=== PATIENT | female | born 1940 | race African-American/Black ===

== ENCOUNTER → 2017-07-29 06:10 | Outpatient (CLI) | payer MEDICARE ==
--- NOTE | ~2017-07-29 | HEMODYNAMI ---
PATIENT:CALVIN SANCHEZ MEDICAL RECORD: [id number] : 38 LOCATION:[facility] ADMISSION DATE: 07/29/17 Generatedon:07/29/20178:25 Patient name: CALVIN SANCHEZ Patient #: [id number] SSN: DO B: 1940 Date of study: 07/29/2017 Page: Of Hemodynamic Procedure Report Patient Data Patient Demographics Procedure consent was obtained First Name: CALVIN Gender: Female Last Name: DANIEL : 1940 Patient #: [id number] Age: 77 year(s) Race: Black Additional ID: [id number] Contact details [address]: [address] [place] [address] [place] State: [place] City: [place] Zip code: [address] Past Medical History Allergies Allergen Reaction Date Comments Reported Penicillins 07/29/2017 Admission Admission Data Admission Date: 07/29/2017 Admission Time: 6:10 Procedure Procedure Types Cath Procedure Diagnostic Procedure LHC LHC w/Coronaries Miscellaneous Procedures Moderate Sedation up to 15 minutes Procedure Description Procedure Date Procedure Date: 07/29/2017 Procedure Start Time: 8:01 Procedure End Time: 8:25 Procedure Staff Name Function Jose Ramon Plata MD Performing Physician Henry Kelley RT Scrub Gemma Lorenzana RT Monitor Cristian Hagan RT Monitor Kory Ang RN Nurse Procedure Data Cath Procedure Fluoroscopy Diagnostic fluoroscopy Total fluoroscopy Time: 3.3 time: 3.3 min min Diagnostic fluoroscopy Total fluoroscopy dose: 454 dose: 454 mGy mGy Contrast Material Contrast Material Type Amount (ml) Isovue 300 62 Entry Location Entry Primary Successful Side Size Upsize Upsize Entry Closure Zuniga ccessful Closure Location (Fr) 1 (Fr) 2 (Fr) Remarks Device Remarks Radial Right 6 Fr Mechanical TR BAND artery Short Compression Estimated blood loss: 5 ml Diagnostic catheters Device Type Used For End Catheter Placement Diagnostic Terumo 5Fr Procedure Bee Spring 110cm catheter Diagnostic Infinity 5Fr Procedure AR MOD Catheter Procedure Complications No complications Procedure Medications Medication Administration Route Dosage 0.9% NaCl I.V. 100 ml/hr Oxygen NC 2 l/min Heparin Flush Bag added to field 2 bags (1000units/500ml NS) Lidocaine 2% added to field 20 Radial Cocktail added to field 1 syringe (Verapomil 2mg/Nitro 400mcg/Heparin 1500units) Benadryl I.V. 50 mg Versed I.V. 1 mg Fentanyl I.V. 50 mcg Radial Cocktail I.A. 1 syringe (Verapomil 2mg/Nitro 400mcg/Heparin 1500units) Fentanyl I.V. 50 mcg Radial Cocktail added to field 1 syringe (Verapomil 2mg/Nitro 400mcg/Heparin 1500units) Radial Cocktail I.A. 1 syringe (Verapomil 2mg/Nitro 400mcg/Heparin 1500units) Hemodynamics Rest Heart Rate: 47 (bpm) Pressure Samples Time Site Value (mmHg) Purpose Heart Use Rate(bpm) 8:05 LV 149/-8,7 Snapshot 72 Gradients Valve Time Site Site Mean SEP/DFP Peak To Heart Use 1 2 (mmHg) (sec/min) Peak Rate (mmHg) (bpm) Aortic 8:06 LV AO 76 Snapshots Pre Cath Intra NCS Post Cath Vital Signs Time Heart Resp SPO2 etCO2 NIBP (mmHg) Rhythm Pain Sedation Rate (ipm) (%) (mmHg) Status Level (bpm) 7:47:45 60 16 100 0 159/66(142) NSR 0 (11) 10(A) , No pain 7:52:32 61 15 100 36.6 160/68(104) NSR 0 (11) 10(A) , No pain 7:57:21 62 26 98 39.5 150/61(124) NSR 0 (11) 10(A) , No pain 8:02:50 66 19 98 38.1 151/53(124) NSR 0 (11) 10(A) , No pain 8:07:33 70 15 99 35.1 128/58(85) NSR 0 (11) 10(A) , No pain 8:12:14 69 14 100 35.8 133/55(93) NSR 0 (11) 10(A) , No pain 8:16:52 73 25 100 9.7 136/68(106) NSR 0 (11) 10(A) , No pain 8:21:31 74 22 97 14.1 130/70(89) NSR 0 (11) 10(A) , No pain Medications Time Medication Route Dose Verified Delivered Reason Notes E ffectiveness by by 7:55:35 0.9% NaCl I.V. 100 Kory Kory Per ml/hr Ashia Ang physician RN RN 7:55:47 Oxygen NC 2 l/min Kory Kory Per Ashia Ang physician RN RN 7:56:05 Heparin Flush added 2 bags Kory Kory used for Bag to Lorigan Lorigan procedure (1000units/500ml field RN RN NS) 7:56:37 Lidocaine 2% added 20ml Kory Kory for local to vial Lorigan Lorigan anesthetic field RN RN 7:56:50 Radial Cocktail added 1 Kory Kory used for (Verapomil to syringe Lorigan Lorigan procedure 2mg/Nitro field RN RN 400mcg/Heparin 1500units) 7:57:08 Benadryl I.V. 50 mg Kory Kory for sedation Ashia Ang RN RN 7:57:22 Versed I.V. 1 mg Kory Kory for sedation Ashia Ang RN RN 7:57:33 Fentanyl I.V. 50 mcg Kory Kory for sedation Ashia Ang RN RN 8:04:58 Radial Cocktail I.A. 1 Kory Jose Ramon for (Verapomil syringe Ashia Plata MD vasodilation 2mg/Nitro RN 400mcg/Heparin 1500units) 8:05:22 Fentanyl I.V. 50 mcg Kory Kory for sedation Ashia Ang RN RN 8:22:40 Radial Cocktail added 1 Kory Kory for (Verapomil to syringe Lorigan Lorigan vasodilation 2mg/Nitro field RN RN 400mcg/Heparin 1500units) 8:22:46 Radial Cocktail I.A. 1 Kory Jose Ramon for (Verapomil syringe Ashia Plata MD vasodilation 2mg/Nitro RN 400mcg/Heparin 1500units) Procedure Log Time Note 7:20:52 Informed consent obtained and on chart 7:28:20 Cristian SAMUEL(R) sent for patient. Start room use. 7:28:23 Time tracking: Regular hours 7:28:27 Plan of Care:Hemodynamics will remain stable., Cardiac rhythm will remain stable., Comfort level will be maintained., Respiratory function will remain adequate., Patient/ family verbilizes understanding of procedure., Procedure tolerated without complication., Recovers from procedure without complications.. 7:31:00 H&P Date Dictated: 07/26/2017 Within 30 days and on chart., H&P Addendum completed by physician on day of procedure. (MUST COMPLETE FOR ALL OUTPATIENTS). 7:38:44 Patient received from Pre/Post Procedure Room to CCL 1 Alert and oriented. Tansferred to table in Supine position. 7:38:46 Warm blankets applied, and billie hugger turned on for patient comfort. 7:38:47 Correct patient and procedure confirmed by team. 7:38:48 ECG and BP/O2 sat monitors applied to patient. 7:46:49 Vital chart was started 7:49:49 Baseline sample Acquired. 7:49:54 Rhythm: sinus rhythm 7:49:56 Full Disclosure recording started 7:49:57 Pre-procedure instructions explained to patient. 7:49:58 Pre-op teaching completed and patient verbalized understanding. 7:50:00 Family in patients room. 7:50:01 Patient NPO since Midnight. 7:50:12 Patient allergic to Penicillins 7:50:16 Is the patient allergic to Iodine/contrast media? No. 7:50:19 Is patient on blood thinner?No 7:50:21 Patient diabetic? Yes. 7:50:23 If diabetic: On Metformin? Yes 7:50:28 If on Metformin: Last Dose? 07/27/2017 7:50:32 Previous problem with sedation/anesthesia? No ? 7:50:33 Snore? No 7:50:36 Sleep apnea? No 7:50:39 Deviated septum? No 7:50:41 Opens mouth fully? Yes 7:50:42 Sticks out tongue? Yes 7:50:44 Airway obstruction? No ? 7:50:49 Dentures? Yes IN TIGHT 7:50:54 Modified Vernon's test Ulnar < 7 seconds 7:50:59 Patient pain scale 0/10 ?. 7:51:05 IV patent on arrival in left forearm with 0.9% NaCl at KVO. 7:51:09 Lab results completed and on chart. 7:51:13 Right Radial & Right Groin area was prepped with chlora-prep and draped in sterile fashion 7:51:14 Alarms reviewed by Coretta Daivs 7:51:14 Sharps counted by scrub and verified by R.N. 7:51:15 --------ALL STOP TIME OUT------ 7:51:16 Final Timeout: patient, procedure, and site verified with staff and physician. All members of the team are in agreement. 7:51:25 Right Radial & Right Groin site verified by team. 7:51:30 Physical assessment completed. ASA score P 2 - A patient with mild systemic disease as per Jose Ramon Plata MD. 7:51:34 Sedation plan: IV Moderate Sedation Versed, Fentanyl 7:51:47 Use device set Radial Dx 7:51:50 Tegaderm 4 x 4 opened to sterile field. 7:51:51 Acist Manifold opened to sterile field. 7:51:52 Acist Hand Control opened to sterile field. 7:51:53 Acist Syringe opened to sterile field. 7:51:54 MBrace Wrist Support opened to sterile field. 7:51:56 Medline Cath Pack opened to sterile field. 7:51:56 Bag Decanter opened to sterile field. 7:51:57 Terumo 6Fr Slender Glidesheath opened to sterile field. 7:51:58 St Eric 260cm J .035 wire opened to sterile field. 7:52:04 Cook 21G 4cm Radial Needle opened to sterile field. 7:55:35 0.9% NaCl 100 ml/hr I.V. was administered by Kory Ang RN; Per physician; 7:55:47 Oxygen 2 l/min NC was administered by Kory Ang RN; Per physician; 7:56:05 Heparin Flush Bag (1000units/500ml NS) 2 bags added to field was administered by Kory Ang RN; used for procedure; 7:56:37 Lidocaine 2% 20ml vial added to field was administered by Kory Ang RN; for local anesthetic; 7:56:50 Radial Cocktail (Verapomil 2mg/Nitro 400mcg/Heparin 1500units) 1 syringe added to field was administered by Kory Ang RN; used for procedure; 7:57:08 Benadryl 50 mg I.V. was administered by Kory Ang RN; for sedation; 7:57:22 Versed 1 mg I.V. was administered by Kory Ang RN; for sedation; 7:57:33 Fentanyl 50 mcg I.V. was administered by Kory Ang RN; for sedation; 7:58:39 Zero performed for pressure channel P1 8:01:05 Procedure started. 8:01:52 Local anesthetic to right radial artery with Lidocaine 2% by Jose Ramon Plata MD.INITIAL ACCESS ONLY 8:02:50 A 6 Fr Short sheath was inserted into the Right Radial artery 8:03:44 A Diagnostic Terumo 5Fr Bee Spring 110cm catheter was advanced over the wire and used for Procedure. 8:04:58 Radial Cocktail (Verapomil 2mg/Nitro 400mcg/Heparin 1500units) 1 syringe I.A. was administered by Jose Ramon Plata MD; for vasodilation; 8:05:00 LV gram done using RICARDO 8:05:22 Fentanyl 50 mcg I.V. was administered by Kory Ang RN; for sedation; 8:06:04 EF : 60 % 8:06:05 LV hemodynamics recorded. 8:06:08 Injector settings: Ml/sec: 7, Volume: 15, 8:06:30 LCA angiography performed. 8:08:27 Catheter exchanged over wire. 8:08:53 A Diagnostic Infinity 5Fr AR MOD Catheter was advanced over the wire and used for Procedure. 8:11:23 RCA angiography performed. 8:13:30 Catheter removed. 8:15:41 Terumo TR Band Standard opened to sterile field. 8:15:58 Sheath removed intact; hemostasis achieved with Mechanical Compression to the Right Radial artery. 8:16:00 Procedure ended.(Physican Out) 8:16:15 Fluoroscopy time 03.30 minutes. 8:16:18 Fluoroscopy dose: 454 mGy 8:16:18 Flurop Dose total: 454 8:16:48 Contrast amount:Isovue 300 62ml. 8:16:50 Sharps counted by scrub and verified by R.N. 8:16:57 TR band inflated with 11cc of air. 8:17:01 Insertion/operative site no bleeding no hematoma. 8:17:06 Post Procedure Pulses reassessed and unchanged 8:17:11 Post-procedure physical assessment completed. ASA score P 2 - A patient with mild systemic disease as per Jose Ramon Plata MD. 8:17:16 Post procedure rhythm: unchanged. 8:17:19 Estimated blood loss: 5 ml 8:17:21 Patient needs reinforcement of post procedure teaching. 8:17:22 Post procedure instruction explained to patient.Patient verbalizes understanding. 8:17:46 Procedure type changed to Cath procedure, Diagnostic procedure, LHC, LHC w/Coronaries, Miscellaneous Procedures, Moderate Sedation up to 15 minutes 8:19:41 Procedure and supply charges have been captured, reviewed, submitted and are correct. 8:19:48 Procedure Complication : No complications 8:22:40 Radial Cocktail (Verapomil 2mg/Nitro 400mcg/Heparin 1500units) 1 syringe added to field was administered by Kory Ang RN; for vasodilation; 8:22:46 Radial Cocktail (Verapomil 2mg/Nitro 400mcg/Heparin 1500units) 1 syringe I.A. was administered by Jose Ramon Plata MD; for vasodilation; 8:25:09 Vital chart was stopped 8:25:10 See physician's report for complete and final results. 8:25:12 Report given to Pre/Post Procedure Room. 8:25:15 Patient transfered to Pre/Post Procedure Room with Stretcher. 8:25:17 Procedure ended. 8:25:17 Full Disclosure recording stopped 8:25:22 End room use (Document Last) Device Usage Item Name Manufacture Quantity Catalog Hospital Part Current Minimal Lot# / Number Charge Number Stock Stock Serial# Code Tegaderm 4 1 [id number] [id number] [id number] 5 x 4 Acist Acist 1 79696 173760 734505 691570 5 Manifold [employer] Inc Acist Hand Acist 1 91580 029411 143472 203930 5 Control Medical Systems Inc Acist Acist 1 88262 303391 012505 576474 20 Syringe Medical Systems Inc MBrace Advanced 1 140-0250-00 518846 69511 137059 5 Wrist Vascular Support Dynamics Medline Cardinal 1 [id number] 960285 73693 403263 5 Cath Pack Health Bag Microtek 1 2001S 255432 37604 669086 5 Dec[employer] Inc[employer] Terumo 6Fr Terumo 1 [id number] 934874 338952 170263 [address] St Eric 1 [id number] 703067 870614 051943 30 260cm J .035 wire Cook 21G Cook Medical 1 [id number] 968608 897151 234615 5 4cm Radial Needle Diagnostic Terumo 1 69-9748 069561 360443 505175 5 Terumo 5Fr Bee Spring 110cm catheter Diagnostic Cardinal 1 [id number] 741897 753908 322736 15 Infinity Health 5Fr AR MOD Catheter Terumo TR Terumo 1 [id number] 418433 439823 072331 40 Band Standard Signature Audit [place] Stage Time Signature Unsigned Intra-Procedure 07/29/2017 Gemma Lorenzana 8:25:42 AM RT(R) Signatures Monitor : Gemma Lorenzana Signature : RT Date : Time : Monitor : Cristian Hagan RT Signature : Date : Time : [facility] Tab0 SHAD [place] [id number]
[~2017-07-29 06:10] MED LIST: COZAAR50 MG PO; GLUCOPHAGE500 MG PO; HYDROCODON-ACE1 EAC7 PO; ISOSORBIDE MONO30 M1 PO; PRAVACHOL20 MG PO; XANAX0.5 MG PO; ZOVIRAX400 MG PO; ZYRTEC10 MG PO
[2017-07-29 06:40] VITALS: BP 115/53; BMI 25.6
[2017-07-29 06:42] LABS: BASOPHILS 0.6 % (0-2); EOSINOPHILS 7.6 % (0-7); HEMATOCRIT 33.9 % (36.0-48.0); HEMOGLOBIN 11.3 g/dL (12-16); IMMATURE GRANULOCYTES 0.3 % (0-5); LYMPHOCYTES 48.5 % (15-50); MCH 31.7 pg (26.0-34.0); MCHC 33.3 g/dL (31.0-37.0); MCV 95.2 fL (80.0-100.0); MEAN PLATELET VOLUME 9.8 fL (7.4-10.4); MONOCYTES 9.4 % (2-11); NEUTROPHILS 33.6 % (40-80); PLATELET COUNT 261 10x3/uL (130-400); RBC 3.56 10x6/uL (4.00-5.40); WBC 3.4 10x3/uL (4.8-10.8)
[2017-07-29 06:55] LABS: CALC OSMOLALITY 282 mosm/kg (275-300); CALCIUM 9.5 mg/dL (8.5-10.1); CARBON DIOXIDE 26.8 mmol/L (21.0-32.0); CHLORIDE - SERUM 105 mmol/L (98-107); CREATININE - SERUM 0.7 mg/dL (0.6-1.3); GLUCOSE 133 mg/dL (74-106); POTASSIUM - SERUM 3.8 mmol/L (3.5-5.1); SODIUM 141 mmol/L (136-145); UREA NITROGEN 12 mg/dL (7-18); eGFR NON AFRICAN AMERICAN 86 mL/min (90-120)
--- NOTE | 2017-07-29 08:44 | NUR ---
RECIEVED TO ROOM VIA STRETCHER FROM WEB UI DEVELOPER WITH REPORTS OF A CLEAN CATH. TR BAND TO R/WRIST CDI NO BLEEDING NO HEMATOMA NOTED. INSTRUCTED PATIENT TO KEEP RUE STRAIGHT NO BENDING OR FLEXING OF WRIST. HR 63 BP 137/56 CHEST PAIN DENIED
--- NOTE | 2017-07-29 08:55 | NUR ---
RESTING QUIETLY WITH EYES CLOSED. TR BAND TO R/WRIST CDI NO BLEEDING NO HEMATMOA NOTED. VSS
--- NOTE | 2017-07-29 09:33 | NUR ---
VSS WITH NO COMPLAINTS. TR BAND TO R/WRIST CDI NO BLEEDING NO HEMATOMA NOTED. FAMILY AT BEDSIDE
--- NOTE | 2017-07-29 09:46 | NUR ---
VSS WITH NO DISTRESS OR COMPLAINTS. TR BAND REMAINS IN PLACE TO R/WRIST CDI NO BLEEDING NO HEMATOMA NOTED.
--- NOTE | 2017-07-29 09:59 | NUR ---
DR SPICER PRESENT AT BEDSIDE TALKING TO PATIENT AND FAMILY.
--- NOTE | 2017-07-29 10:12 | NUR ---
ENTERED ROOM WITH PATIENT SITTING UP 30 DEGREES EATING SANDWICH WITH TR BAND REMOVED. NO BLEEDING NO HEMATOMA NOTED. ASK THE PATIENT WHAT HAPPENED TO HER TR BAND AND SHE REPLIED I TOOK IT OFF. TR BAND IS ON THE BED. STAFF APPLIED DRESSING AND PUT BRACE BACK IN PLACE REEDUCATED PATIENT ON NO BENDING OR FLEXING OF WRIST. PATIENT CONFUSED STATES OK SHE PUSHES HERSELF UP IN BED WITH THE R/WRIST.
--- NOTE | 2017-07-29 10:26 | NUR ---
PIV REMOVED WITH DRESSING APPLIED R/WRIST REMAINS CDI NO BLEEDING NO HEAMTOMA NOTED. PATIENT DENIED PAIN UP TO GET DRESSED FOR DISCHARGE HOME
--- NOTE | 2017-07-29 10:39 | NUR ---
VERBAL AND WRITTEN DISCHARGE GONE OVER WITH PATIENT AND BOTH VERBALIZED UNDERSTANDING. NEW SCRIPT IN HAND FOR IMDUR 30 MG DAILY. PATIENT VERBALIZED TO START MEDICATION TODAY. R/WRIST REMAINS CDI WITH DRESSING INTACT.
--- NOTE | 2017-07-29 10:43 | NUR ---
PATIENT TRANSPORTED VIA WC TO PARKING FOR TO DRIVE HOME CHEST PAIN IS DENIED AND R/WRIST CDI
== END | disposition home or self-care (01) ==
LOC: D.CATH 06:10
PROVIDERS: Internal Medicine Cardiovascular Disease
DX: I25.119 Atherosclerotic heart disease of native coronary artery with unspecified angina pectoris (principal); Z01.812 Encounter for preprocedural laboratory examination

== ENCOUNTER → 2018-09-01 10:39 | Outpatient (CLI) | payer MEDICARE ==
[2017-07-29 06:40] VITALS: BMI 25.6
== END | disposition home or self-care (01) ==
LOC: D.HCCARDIO 10:39
DX: I25.10 Atherosclerotic heart disease of native coronary artery without angina pectoris (principal)

== ENCOUNTER → 2019-07-24 08:40 | Outpatient (CLI) | payer MEDICARE ==
[2017-07-29 06:40] VITALS: BMI 25.6
== END | disposition home or self-care (01) ==
LOC: D.HCCECHO 08:40
PROVIDERS: ATTEND Internal Medicine Cardiovascular Disease
DX: I25.10 Atherosclerotic heart disease of native coronary artery without angina pectoris (principal)

== ENCOUNTER → 2020-03-12 09:24 | Outpatient (CLI) | payer MEDICARE ==
[2017-07-29 06:40] VITALS: BMI 25.6
== END | disposition home or self-care (01) ==
LOC: D.HCCARDIO 02-23 09:00
PROVIDERS: ATTEND Internal Medicine Cardiovascular Disease
DX: I25.10 Atherosclerotic heart disease of native coronary artery without angina pectoris (principal)

== ENCOUNTER 2020-03-21 06:47 | Outpatient (CLI) | payer MEDICARE ==
[~2020-03-21] VITALS: Ht 157.5 cm; Wt 65.0 kg
--- NOTE | ~2020-03-21 | HEMODYNAMI ---
PATIENT:CALVIN SANCHEZ MEDICAL RECORD: [id number] : 38 LOCATION:[facility] ADMISSION DATE: 03/21/20 Generatedon:03/21/20209:38 Patient name: CALVIN SANCHEZ Patient #: [id number] SSN: [id number] : 1940 Date of study: 03/21/2020 Page: Of Hemodynamic Procedure Report Patient Data Patient Demographics Procedure consent was obtained First Name: CALVIN Gender: Female Last Name: DANIEL : 1940 Patient #: [id number] Age: 80 year(s) Race: Black SSN: [id number] Additional ID: [id number] Contact details [address]: [address] [place] [address] [place] State: [place] City: [place] Zip code: [address] Past Medical History Performed procedures and imaging results Date Procedure Procedure Results Comments 03/12/2020 Stress testing Positive->Intermediate with SPECT MPI risk Allergies Allergen Reaction Date Comments Reported Penicillins 07/29/2017 Other allergy 03/21/2020 PCN Admission Admission Data Admission Date: 03/21/2020 Admission Time: 6:47 Arrival Date: 03/21/2020 Arrival Time: 0:00 Admit Source: Other Insurance Payor: Medicare [facility] #: [id number] Height (in.): 62 BSA: 1.66 (m2) Height (cm.): 157.48 BMI: 26.21 (kg/m2) Weight (lbs.): 143.3 Weight (kg.): 65 Lab Results Lab Result Date: 03/21/2020 Lab Result Time: 0:00 Biochemistry Name Units Result Min Max BUN mg/dl 14 --(--*-)-- 7 18 Creatinine mg/dl 1 --(--*-)-- 0.6 1.3 eGFR ml/min 67.81008 *-(----)-- 90 120 AM CBC Name Units Result Min Max Hematocrit % 34 *-(----)-- 42 54 Hemoglobin g/dl 11 *-(----)-- 13.5 17.5 Procedure Procedure Types Cath Procedure Diagnostic Procedure [facility] w/Coronaries Sedation Charges Moderate Sedation up to 15 minutes Procedure Description Procedure Date Procedure Date: 03/21/2020 Procedure Start Time: 9:20 Procedure End Time: 9:35 Procedure Staff Name Function Jose Ramon Plata MD Performing Physician Nila Mancera RT Monitor Gladis Ervin RT Scrub Yolanda Lockett RN Nurse Procedure Data Cath Procedure Fluoroscopy Diagnostic fluoroscopy Total fluoroscopy Time: 1.4 time: 1.4 min min Diagnostic fluoroscopy Total fluoroscopy dose: 361 dose: 361 mGy mGy Contrast Material Contrast Material Type Amount (ml) Isovue 370 55 Entry Location Entry Primary Successful Side Size Upsize Upsize Entry Closure Succes sful Closure Location (Fr) 1 (Fr) 2 (Fr) Remarks Device Remarks Femoral Right 5 Fr Exoseal artery Estimated blood loss: 5 ml Diagnostic catheters Device Type Used For End Catheter Placement MULTIPACK JL 4.0 5Fr Procedure catheter MULTIPACK 3DRC 5Fr Procedure catheter MULTIPACK Pigtail 5 Fr Procedure catheter Procedure Complications No complications Procedure Medications Medication Administration Route Dosage Oxygen etCO2 Nasal cannula 2 l/min Lidocaine 2% added to field 20 Heparin Flush Bag added to field 2 bags (1000units/500ml NS) 0.9% NaCl I.V. 100 ml/hr Versed I.V. 2 mg Fentanyl I.V. 50 mcg Versed I.V. 2 mg Hemodynamics Rest BSA: 1.66 (m2) HGB: 11 (g/dl) O2 Consumption: Estimated: 138.55 (ml/min) O2 Cons umption indexed: Estimated:83.46 (ml/min/m) Heart Rate: 54 (bpm) Pressure Samples Time Site Value (mmHg) Purpose Heart Use Rate(bpm) 9:29 LV 190/42,73 Snapshot 62 Gradients Valve Time Site Site Mean SEP/DFP Peak To Heart Use 1 2 (mmHg) (sec/min) Peak Rate (mmHg) (bpm) Aortic 9:31 LV AO 51 Snapshots Pre Cath Intra NCS Post Cath Vital Signs Time Heart Resp SPO2 etCO2 NIBP (mmHg) Rhythm Pain Sedation Rate (ipm) (%) (mmHg) Status Level (bpm) 9:07:37 53 18 95 32.3 130/50(113) NSR 0 (11) 10(A) , No pain 9:13:27 54 15 100 38.3 163/61(145) NSR 0 (11) 10(A) , No pain 9:17:57 54 16 100 20.2 142/58(110) NSR 0 (11) 10(A) , No pain 9:22:21 55 18 100 34.5 138/62(118) NSR 0 (11) 9(A) , No pain 9:26:46 58 19 96 35.3 125/56(98) NSR 0 (11) 9(A) , No pain 9:31:08 60 17 96 35.3 128/52(100) NSR 0 (11) 9(A) , No pain 9:35:30 58 17 96 29.2 139/56(112) NSR 0 (11) 10(A) , No pain Medications Time Medication Route Dose Verified Delivered Reason Notes Effec tiveness by by 9:10:23 Oxygen etCO2 2 Jose Ramon Jose Ramon Per Nasal l/min Boni Plata MD physician cannula 9:10:31 Lidocaine 2% added 20ml Jose Ramon Jose Ramon used for to vial Boni Plata MD procedure field 9:10:37 Heparin Flush added 2 Jose Ramon Jose Ramon used for Bag to bags Boni Plata MD procedure (1000units/500ml field NS) 9:10:44 0.9% NaCl I.V. 100 Jose Ramon Buffie Per ml/hr Boni Lockett RN physician 9:19:01 Fentanyl I.V. 50 Jose Ramon Buffie for mcg Boni Lockett RN sedation 9:19:54 Versed I.V. 2 mg Jose Ramon Buffie for Boni Lockett RN sedation 9:25:30 Versed I.V. 2 mg Jose Ramon Buffie for Boni Lockett RN sedation Procedure Log Time Note 8:47:06 Informed consent obtained and on chart 8:50:16 Arrival Date: 03/21/2020 12:00:00 AM 8:50:16 Admit Source: Other 8:50:22 Insurance Payor : Medicare 8:50:49 Patient Height : 62 inches 8:50:57 Patient Weight : 143.3 lbs 8:51:13 Lab Result : Hematocrit 34 % 8:51:13 Lab Result : Hemoglobin 11 g/dl 8:51:35 Diagnostic Cath Status : Elective 8:51:44 Procedure Status Elective Heart Cath (OP). 8:51:47 Yolanda Lockett RN sent for patient. Start room use. 8:51:48 Time tracking: Regular hours (M-F 7:00 - 5:00) 8:51:52 Plan of Care:Hemodynamics will remain stable., Cardiac rhythm will remain stable., Comfort level will be maintained., Respiratory function will remain adequate., Patient/ family verbilizes understanding of procedure., Procedure tolerated without complication., Recovers from procedure without complications.. 8:52:07 H&P Date Dictated: 02/20/2020 Within 30 days and on chart.. 8:52:08 Pre-procedure instructions explained to patient. 8:52:08 Pre-op teaching completed and patient verbalized understanding. 8:52:11 Family in waiting room. 8:52:13 Patient NPO since Midnight. 8:52:24 Patient allergic to Other allergyPCN 8:53:01 Lab results completed and on chart. 8:53:14 Stress Test: yes; abnormal ANTERIOR, LATERAL, APICAL 8:53:17 Alarms reviewed by R. N. 8:53:18 Sharps counted by scrub and verified by R.N. 8:56:14 Patient received from Pre/Post Procedure Room to CCL 1 Alert and oriented. Tansferred to table in Supine position. 8:56:16 Warm blankets applied, and billie hugger turned on for patient comfort. 8:56:16 Correct patient and procedure confirmed by team. 8:56:17 ECG and BP/O2 sat monitors applied to patient. 9:03:17 Is the patient allergic to Iodine/contrast media? No. 9:03:50 Dentures? Yes IN TIGHT 9:03:53 Previous problem with sedation/anesthesia? No ? 9:03:54 Snore? Yes 9:03:55 Sleep apnea? No 9:03:56 Deviated septum? No 9:03:57 Opens mouth fully? Yes 9:03:57 Sticks out tongue? Yes 9:04:00 Airway obstruction? No ? 9:04:03 Patient diabetic? Yes. 9:04:04 If diabetic: On Metformin? No 9:04:08 Is patient on blood thinner?No 9:04:12 Baseline sample Acquired. 9:04:15 Rhythm: sinus bradycardia 9:04:16 Full Disclosure recording started 9:04:23 Patient pain scale 0/10 ?. 9:04:26 IV patent on arrival in left hand with 0.9% NaCl at [facility]. 9:04:33 Right groin area was prepped with chlora-prep and draped in sterile fashion 9:05:52 Pre procedure: right dorsailis pedis pulse 2+ Normal; easily identifiable; not easily obliterated 9:05:55 Modified Vernon's test Ulnar > 7 seconds. 9:06:45 Use device set Femoral Dx 9:06:46 ACIST Syringe (37389) opened to sterile field. 9:06:46 Bag Decanter (2002S) opened to sterile field. 9:06:47 Medline Cath Pack ([id number]) opened to sterile field. 9:06:48 ACIST Hand Control (72715) opened to sterile field. 9:06:49 ACIST Manifold (37322) opened to sterile field. 9:06:49 DIAGNOSTIC Multipack 5Fr catheter set ([id number]) opened to sterile field. 9:06:50 SHEATH 5FR [place] (JWN747) opened to sterile field. 9:06:52 EMERALD Guide Wire (433-414) opened to sterile field. 9:08:01 Lab Result : eGFR AM 67.21918 ml/min 9:08:01 Lab Result : Creatinine 1 mg/dl 9:08:01 Lab Result : BUN 14 mg/dl 9:10:23 Oxygen 2 l/min etCO2 Nasal cannula was administered by Jose Ramon Plata MD; Per physician; Verbal order read back and verified. 9:10:31 Lidocaine 2% 20ml vial added to field was administered by Jose Ramon Plata MD; used for procedure; Verbal order read back and verified. 9:10:37 Heparin Flush Bag (1000units/500ml NS) 2 bags added to field was administered by Jose Ramon Plata MD; used for procedure; Verbal order read back and verified. 9:10:44 0.9% NaCl 100 ml/hr I.V. was administered by Yolanda Lockett RN; Per physician; Verbal order read back and verified. 9:18:45 Risk of Mortality: 0.2 9:18:47 Risk of blood transfusion: 0.8 9:18:50 Risk of STEPHANY: 0.5 9:18:52 --------ALL STOP TIME OUT------ 9:18:52 Final Timeout: patient, procedure, and site verified with staff and physician. All members of the team are in agreement. 9:18:54 Right groin site verified by team. 9:18:58 Fire Safety Assessment: A--An alcohol-based skin anteseptic being used preoperatively., C--Open oxygen or nitrous oxide is being used., D--An ESU, laser, or fiber-optic light is being used. 9:19:01 Fentanyl 50 mcg I.V. was administered by Yolanda Lockett RN; for sedation; Verbal order read back and verified. 9:19:01 Physical assessment completed. ASA score P 2 - A patient with mild systemic disease as per Jose Ramon Plata MD. 9:19:05 2) 60-89 Mildly reduced kidney function, and other findings (as for stage 1) point to kidney disease. 9:19:08 Maximum allowable contrast dose (3.7 X eGFR X 0.75)189 ml. 9:19:11 Sedation plan: IV Moderate Sedation Medication:Versed, Fentanyl 9:19:54 Versed 2 mg I.V. was administered by Yolanda Lockett RN; for sedation; Verbal order read back and verified. 9:20:32 Procedure started. 9:20:46 Local anesthetic to right femoral artery with Lidocaine 2% by Jose Ramon Plata MD.INITIAL ACCESS ONLY 9:23:11 A 5 Fr sheath was inserted into the Right Femoral artery 9:23:18 A MULTIPACK JL 4.0 5Fr catheter was advanced over the wire and used for Procedure. 9:24:03 LCA angiography performed. 9:24:05 Injector settings: Ml/sec: 3, Volume: 6, 9:25:30 Versed 2 mg I.V. was administered by Yolanda Lockett RN; for sedation; Verbal order read back and verified. 9:26:19 Catheter exchanged over wire. 9:26:55 A MULTIPACK 3DRC 5Fr catheter was advanced over the wire and used for Procedure. 9:27:01 Injector settings: Ml/sec: 3, Volume: 6, 9:27:04 RCA angiography performed. 9:27:48 ACCDominant side:Left 9:27:56 Catheter exchanged over wire. 9:28:20 A MULTIPACK Pigtail 5 Fr catheter was advanced over the wire and used for Procedure. 9:29:02 Injector settings: Ml/sec: 5, Volume: 15, 9:29:04 LV gram done using RICARDO 9:29:15 LV hemodynamics recorded. 9:29:25 EF : 55 % 9:32:32 Catheter removed. 9:32:35 EXOSEAL 5Fr (EX500) opened to sterile field. 9:32:45 Sheath removed intact; hemostasis achieved with Exoseal to the Right Femoral artery. 9:32:50 Fluoroscopy time 01.40 minutes. 9:32:56 Fluoroscopy dose: 361 mGy 9:33:07 Flurop Dose total: 361 9:33:11 Dose Area Product 11059 mGy/cm. 9:33:14 Contrast amount:Isovue 370 55ml. 9:33:16 Procedure ended.(Physican Out) 9:33:27 Maximum allowable dose exceeded? No. 9:33:28 Sharps counted by scrub and verified by R.N. 9:33:33 Post-op/insertion site Right Femoral artery dressed using a 4 x 4 and Tegaderm. 9:33:38 Post right femoral artery:stable, soft, clean and dry 9:33:40 Post Procedure Pulses reassessed and unchanged 9:33:54 Post-procedure physical assessment completed. ASA score P 2 - A patient with mild systemic disease as per Jose Ramon Plata MD. 9:33:57 Post procedure rhythm: unchanged. 9:34:00 Estimated blood loss: 5 ml 9:34:02 Post procedure instruction explained to patient.Patient verbalizes understanding. 9:34:02 Patient needs reinforcement of post procedure teaching. 9:34:22 Procedure type changed to Cath procedure, Diagnostic procedure, LHC, [facility] w/Coronaries, Sedation Charges, Moderate Sedation up to 15 minutes 9:34:47 Procedure and supply charges have been captured, reviewed, submitted and are correct. 9:34:51 Procedure Complication : No complications 9:34:57 [facility] Findings: TEX- will discuss options w/ pt 9:35:00 Operative report dictated upon procedure completion. 9:35:01 See physician's report for complete and final results. 9:35:06 Report given to Pre/Post Procedure Room. 9:35:08 Vital chart was stopped 9:35:17 Patient transfered to Pre/Post Procedure Room with Stretcher. 9:35:19 Procedure ended. 9:35:19 Full Disclosure recording stopped 9:37:34 End room use (Document Last) 9:37:55 End room use (Document Last) 9:38:22 End room use (Document Last) Device Usage Item Name Manufacture Quantity Catalog Hospital Part Current Minimal L ot# / Number Charge Number Stock Stock Serial# Code ACIST Acist 1 22460 868607 819422 774123 20 Syringe Medical (81084) Systems Inc Bag Microtek 1 664088 58971 985825 5 Decanter Medical Inc. () Medline Medline 1 [id number] 121328 35919 924623 5 Cath Pack ([id number]) ACIST Hand Acist 1 70819 076729 842459 002272 5 Control Medical (91388) Systems Inc ACIST Acist 1 14351 260104 772422 719224 5 Manifold Medical (73750) Systems Inc DIAGNOSTIC Cardinal 1 OX9312 837910 24337 077946 30 Multipack Health 5Fr catheter set (FG9582) SHEATH 5FR Terumo 1 OEG258 327153 047144 065940 5 [place] (AGB965) EMERALD Cardinal 1 502-455 700598 906410 370032 5 Guide Wire Health (502-455) MULTIPACK Cardinal 1 928501 5 JL 4.0 5Fr Health catheter MULTIPACK Cardinal 1 524578 5 3DRC 5Fr Health catheter MULTIPACK Cardinal 1 709102 5 Pigtail 5 Health Fr catheter EXOSEAL 5Fr Cardinal 1 EX500 179922 242811 849301 10 (EX500) Health Signature Audit Hiram Stage Time Signature Unsigned Intra-Procedure 03/21/2020 Nila Mancera 9:37:55 AM RT(R) Intra-Procedure 03/21/2020 Yolanda Lockett RN 9:38:22 AM Intra-Procedure 03/21/2020 Jose Ramon Plata MD 9:38:39 AM [facility] [address] [place] [address]
[2020-03-21] MEDS ORDERED: LIPITOR10 MG PO (07:28)
[2020-03-21] MEDS ORDERED: TIMOPTIC 0.5 % O5 ML EACH EYE (07:32)
[2020-03-21] MEDS ORDERED: XALATAN 0.0052.5 ML LEFT EYE (07:33)
[2020-03-21] MEDS ORDERED: CARAFATE1 G PO (07:34)
[2020-03-21] MEDS ORDERED: GLIMEPIRIDE4 MG PO (07:34)
[2020-03-21] MEDS ORDERED: PEPCID AC20 MG PO (07:36)
[2020-03-21] MEDS ORDERED: TRESIBA FL100 UNIT/1 SC (07:36)
[2020-03-21] MEDS ORDERED: HYDROCODON-ACE1 EAC7 PO (07:39)
[2020-03-21 07:41] VITALS: BP 165/55; Ht 157.5 cm; Wt 65.0 kg
[2020-03-21 07:48] LABS: MCH 31.5 pg (26.0-34.0); MCHC 32.4 g/dL (31.0-37.0); MCV 97.4 fL (80.0-100.0); MEAN PLATELET VOLUME 10.6 fL (7.4-10.4); PLATELET COUNT 258 10x3/uL (130-400); RBC 3.49 10x6/uL (4.00-5.40); RDW 12.1 % (11.5-14.5); WBC 4.1 10x3/uL (4.8-10.8)
[2020-03-21 08:49] LABS: ANION GAP 7.4 mmol/L (8-16); CALCIUM 9.1 mg/dL (8.5-10.1); CARBON DIOXIDE 31.5 mmol/L (21.0-32.0); CHOL - HDL RATIO 3.5 ratio (2.3-4.1); LDL-HDL RATIO 2.1 ratio (1.5-3.5); POTASSIUM - SERUM 3.9 mmol/L (3.5-5.1)
--- NOTE | 2020-03-21 09:45 | NUR ---
PT REC'D TO ROOM 10 VIA STRETCHER FROM BLANKER OPERATOR. MONITORS ESTAB, PT DROWSY. SEE SOLUTIONS SALES EXECUTIVE. ALARMS ON AND C/L IN REACH.
--- NOTE | 2020-03-21 10:00 | NUR ---
R GROIN SITE SOFT, NO S/S BLEEDING OR HEMATOMA. PULSES PALP. VSS. PT RESTING QUIETLY, NOT AT BS FOR UPDATE AT THIS TIME. ALARMS ON AND C/L IN REACH.
--- NOTE | 2020-03-21 10:30 | NUR ---
PT RESTING QUIETLY, VSS. R GROIN SITE SOFT, NO S/S BLEEDING OR HEMATOMA. FEET WARM WITH PALP PULSES. ALARMS ON AND C/L IN REACH.
--- NOTE | 2020-03-21 10:45 | NUR ---
R GROIN SITE SOFT, NO S/S BLEEDING OR HEMATOMA. VSS.
--- NOTE | 2020-03-21 11:05 | NUR ---
SPOKE WITH PT ON PHONE RE: NEEDING TO BE HERE FOR MD UPDATE AND PT DISCHARGE AT 1230.
--- NOTE | 2020-03-21 11:24 | NUR ---
R GROIN SITE SOFT, C/D/I. HEAD OF BED ELEVATED. PT DENIES NEED FOR SANDWICH OR DRINK AT THIS TIME. VSS. C/L IN REACH.
[2020-03-21 11:44] LABS: EOSINOPHILS 6 % (0-7); LYMPHOCYTES 64 % (15-50); MONOCYTES 4 % (2-11); NEUTROPHILS 26 % (40-80); PLATELET ESTIMATE NORMAL
--- NOTE | 2020-03-21 11:45 | NUR ---
DR SPICER AT TO UPDATE PT AND HER . WILL KEEP APPT IN OFFICE TOMORROW TO DISCUSS PLAN OF CARE.
--- NOTE | 2020-03-21 12:15 | NUR ---
R GROIN SITE SOFT, C/D/I. PIV D/C'D INTACT, DSG APPLIED. PT ALLOWED UP TO GET DRESSED WITH ASSISTING.
--- NOTE | 2020-03-21 12:17 | NUR ---
ALL DISCHARGE INSTRUCTIONS REVIEWED WITH PT AND HER , THEY VERBALIZE UNDERSTANDING.
--- NOTE | 2020-03-21 12:20 | NUR ---
PT D/C'D VIA WC TO PRIVATE VEHICLE. PT HAS ALL PAPER WORK AND BELONGINGS.
== END 2020-03-21 12:20 | disposition home or self-care (01) ==
LOC: D.CATH 06:47
PROVIDERS: ATTEND Internal Medicine Cardiovascular Disease
DX: I25.119 Atherosclerotic heart disease of native coronary artery with unspecified angina pectoris (principal); R94.39 Abnormal result of other cardiovascular function study; E11.9 Type 2 diabetes mellitus without complications; Z79.84 Long term (current) use of oral hypoglycemic drugs; R06.09 Other forms of dyspnea; I34.0 Nonrheumatic mitral (valve) insufficiency

== ENCOUNTER 2020-03-25 15:53 | Inpatient (IN) | payer MEDICARE ==
[~2020-03-25] VITALS: Ht 157.5 cm; Wt 64.6 kg
[~2020-03-25 15:53] MED LIST changes: +CARAFATE1 G PO; +GLIMEPIRIDE4 MG PO; +LIPITOR10 MG PO; +PEPCID AC20 MG PO; +TIMOPTIC 0.5 % O5 ML EACH EYE; +TRESIBA FL100 UNIT/1 SC; +XALATAN 0.0052.5 ML LEFT EYE
[2020-03-28] MEDS ORDERED: MICARDIS40 MG PO (08:28)
[2020-03-28] MEDS ORDERED: VITAMIN B-121000 MCG PO (08:28)
[2020-03-28] MEDS ORDERED: TURMERIC PO (08:29)
[2020-03-28] MEDS ORDERED: VITAMIN D1000 UNIT PO (08:29)
[2020-03-28 10:22] LABS: BASOPHILS 0.8 % (0-2); EOSINOPHILS 5.4 % (0-7); HEMATOCRIT 36.8 % (36.0-48.0); HEMOGLOBIN 11.9 g/dL (12-16); IMMATURE GRANULOCYTES 0.3 % (0-5); LYMPHOCYTES 46.1 % (15-50); MCH 31.6 pg (26.0-34.0); MCHC 32.3 g/dL (31.0-37.0); MCV 97.6 fL (80.0-100.0); MEAN PLATELET VOLUME 9.7 fL (7.4-10.4); MONOCYTES 9.4 % (2-11); PLATELET COUNT 254 10x3/uL (130-400); RBC 3.77 10x6/uL (4.00-5.40); RDW 11.9 % (11.5-14.5); WBC 3.7 10x3/uL (4.8-10.8)
[2020-03-28 10:43] LABS: ALBUMIN 4.4 g/dL (3.4-5.0); ANION GAP 12.3 mmol/L (8-16); BILIRUBIN - TOTAL 0.56 mg/dL (0.2-1.3); CALCIUM 9.8 mg/dL (8.5-10.1); CARBON DIOXIDE 29.6 mmol/L (21.0-32.0); CREATININE - SERUM 1.1 mg/dL (0.6-1.3); INR 1.11 (0.85-1.17); PHOSPHOROUS 4.2 mg/dL (2.5-4.9); POTASSIUM - SERUM 3.9 mmol/L (3.5-5.1); PROTEIN - SERUM 8.5 g/dL (6.4-8.2); PROTIME 14.2 SECONDS (11.6-15.0); T4 THYROXIN - FREE 1.05 ng/dL (0.76-1.46); THYROID STIMULATING HORMONE 1.57 uIU/mL (0.36-3.74); URIC ACID 4.1 mg/dL (2.6-7.2)
[2020-03-28 10:44] LABS: APTT 53.3 SECONDS (22.8-39.4)
[2020-03-28 12:25] LABS: BILIRUBIN NEGATIVE (NEGATIVE); GLUCOSE NEGATIVE (NEGATIVE); KETONE NEGATIVE (NEGATIVE); NITRITE NEGATIVE (NEGATIVE); UROBILINOGEN NORMAL (NORMAL)
[2020-04-02] VITALS (51 sets, daily range): BP systolic 107–148; BP diastolic 40–62; BMI 25.8; BMI 27.9
--- NOTE | 2020-04-02 14:23 | NUR ---
1345-RECIEVED PER FLOW SHEET-AND ACCOMPANIED BY OR TEAM-PLACED TO VENT PER RT-TUBE TAMER APPLIED-PLACED TO MONITOR-R RADIAL DEJON-CVP -CARDIAC -SAT-NIBP-R IJ CORDIS INFUSING -PLASMALYTE AT 100ML/H MEDIASTINAL CHEST TUBES PLACED TO 20CM SUCTION-SCANT DRAINAGE -NO CLOTS VISIBLE IN TUBING-HA DRAIN-EMPTIED FOR 40ML -SANG-RECOMPRESSED PER PROTOCOL-R LEG COBAN WRAP IN PLACE-PPW--L LEG-MARCOS-SCD PLACED PER PROTOCOL-FSBS PER PROTOCOL-INSULIN OFF AT LUCI TIME 1400-PORTABLE CXR DONE -DR YOUSIF IN UNIT AND SEEN-RT NOTIFIED OF TUBE ADJUSTMENT REQUIRED BY DR YOUSIF-SET AT 21CM AT LIP AND SECURED 1410-ABP AT 136/58 NITRO GTT INITIATED AT 2.5ML/H/8MCG--ADJUSTED TO 5ML/H/16.6MCG-KCL 20 STARTED OVER 1HR DIRECTED BY DR YOUSIF-3.7K AT BEDSIDE TELEPHONE NUMBER TAKEN WITH AGREEMENT TO CALL WHEN PT OFF VENTILATOR
--- NOTE | 2020-04-02 15:22 | NUR ---
SLIGHTLY OPENED EYES TO PERSISTENT STIMULR--RR10 VENT 10
--- NOTE | 2020-04-02 16:49 | NUR ---
DR YOUSIF AT BEDSIDE-STATUS UPDATE GIVEN -PT AWAKENS TO VERBAL--RR 33-TV 200
--- NOTE | 2020-04-02 17:18 | NUR ---
1700-PT MOUTHING WORD PAIN-NOTED TEARS RUNNING-MORPHINE 2MG
--- NOTE | 2020-04-02 18:28 | NUR ---
DR FLOOD AT BEDSIDE
--- NOTE | 2020-04-02 19:29 | NUR ---
PT RECEIVED IN VENT SIMV VT 500, PS 10, 02 40%, PEEP 5, OFF SEDATION AND TOLERATING WELL. NO S/S OF DISTRESS. CHEST TUBES AND HA DRAIN PATENT WITH BLOODY DRAINAGE. RIGHT IJ CVL WITH PLASMALYTE, CLEVIPREX, AND VANC RUNNING. NO CONCERNS NOTED AT THIS TIME. WILL CONTINUE TO OBSERVE.
--- NOTE | 2020-04-02 20:27 | NUR ---
RT WAS AT BEDSIDE CHANGED VENT TO SPONT AT 2012. PT TOLERATING WELL AT THIS TIME. WILL CONTINUE TO OBSERVE.
--- NOTE | 2020-04-02 22:00 | NUR ---
DR YOUSIF MADE AWARE OF ABG AND NIF RESULTS. RECEIVED ORDERS NOT TO EXTUBATE. START PROPOFOL AND GIVE 1 AMP OF BICARB. VENT CHANGE TO SIMV. WILL CONTINUE TO OBSERVE.
[2020-04-02 23:37] LABS: MAGNESIUM - SERUM 2.1 mg/dL (1.8-2.4); POTASSIUM - SERUM 3.9 mmol/L (3.5-5.1)
--- NOTE | 2020-04-02 23:51 | NUR ---
PT ON SEDATION AWAKENS TO VERBAL STIMULIN. DENIES PAIN. SEDATION INCREASED PER MAR.
[2020-04-03] VITALS (98 sets, daily range): BP systolic 029–147; BP diastolic 34–60; Ht 157.5 cm; Wt 64.6 kg
--- NOTE | 2020-04-03 00:42 | NUR ---
PT WITH PVC IN 50-70'S. REPORTED TO DR YOUSIF WITH K3.9 BEING TREATED AT THIS TIME PER PROTOCOL, MAG 2.1. NO ORDERS RECEIVED.
--- NOTE | 2020-04-03 05:45 | NUR ---
CHG BATH GIVEN WITH CAMARGO CARE PROVIDED. COMPLETE LINEN CHANGE PROVIDED. SUBSTERNAL DRESSING CHANGED. PT TOLERATED WELL.
[2020-04-03 06:24] LABS: HEMATOCRIT 32.9 % (36.0-48.0); HEMOGLOBIN 10.9 g/dL (12-16); MCH 30.9 pg (26.0-34.0); MCHC 33.1 g/dL (31.0-37.0); MCV 93.2 fL (80.0-100.0); MEAN PLATELET VOLUME 9.8 fL (7.4-10.4); RBC 3.53 10x6/uL (4.00-5.40); RDW 13.2 % (11.5-14.5); WBC 9.9 10x3/uL (4.8-10.8)
[2020-04-03 06:31] LABS: ALBUMIN 3.3 g/dL (3.4-5.0); ALKALINE PHOSPHATASE 49 U/L (30-120); ALT (SGPT) 25 U/L (10-68); BILIRUBIN - TOTAL 0.47 mg/dL (0.2-1.3); CALCIUM 7.7 mg/dL (8.5-10.1); CARBON DIOXIDE 23.5 mmol/L (21.0-32.0); CHLORIDE - SERUM 108 mmol/L (98-107); CREATININE - SERUM 0.7 mg/dL (0.6-1.3); SODIUM 142 mmol/L (136-145); UREA NITROGEN 12 mg/dL (7-18); eGFR NON AFRICAN AMERICAN 85 mL/min (90-120)
[2020-04-03 06:33] LABS: CALC OSMOLALITY 286 mosm/kg (275-300); GLUCOSE 166 mg/dL (74-106); POTASSIUM - SERUM 3.3 mmol/L (3.5-5.1)
--- NOTE | 2020-04-03 07:00 | NUR ---
PATIENT OPENS EYES ON REQUEST, MOVES ALL EXTREMITITES ON REQUEST. ETT SECURE TO VENT. BILATERAL LUNG SOUNDS EQUAL AND CLEAR. ABD SOFT. CHEST TUBES X2 TO 20 CM SUCTION BLOODY DRAINAGE NOTED. HA BULB COMPRESSED BLOODY DRAINAGE. ALL DRESSING DRY AND INTACT. RIGHT LEG INCISIONS X2 DRY AND INTACT OPEN TO AIR. SCD ON LEFT LEG. RIJ CENTRAL LINE INFUSING WITH NTG GTT AT 15 MCG/MIN. CLEVEPREX AT 10 MCG/HOUR. PLASMALYTE AT 100 ML HOUR. KCL BOLUS INFUSING. CAMARGO CATH PATENT DRAINING CLEAR MISHA URINE. PATIENT AWAKES EASILY NODES HEAD TO YES AND NO QUESTIONS. HEAD OF BED ELEVATED 30 DEGREES. NO DISTRESS. MONITOR SR
--- NOTE | 2020-04-03 07:53 | OP ---
PATIENT NAME: EVELIA SANCHEZ MEDICAL RECORD: [id number] :38 LOCATION:D.CVI D.CV04 ADMISSION DATE:04/02/20 SURGEON: ARBEN YOUSIF MD DATE OF OPERATION: 04/02/2020 SURGEON: Arben Yousif MD PROCEDURE PERFORMED: 1. Coronary artery bypass graft times 3 (left internal mammary to LAD, reverse saphenous vein from aorta to ramus intermedius and aorta to the obtuse marginal). 2. Endoscopic saphenous vein harvest. PREOPERATIVE DIAGNOSES: Coronary artery disease including left main coronary artery stenosis with unstable angina. POSTOPERATIVE DIAGNOSES: Coronary artery disease including left main coronary artery stenosis with unstable angina. ANESTHESIA: General endotracheal anesthesia. ESTIMATED BLOOD LOSS: Total cardiopulmonary bypass with Cell Saver retransfusion and 2 units of packed red blood cells. COMPLICATIONS: None. SPECIMENS: None. CONDITION: Stable. DISPOSITION: ICU. OPERATIVE FINDINGS: 1. Transesophageal echocardiography revealed trace mitral regurgitation, trace aortic insufficiency, good global contractility before and after cardiopulmonary bypass. 2. A 3-mm somewhat thin walled, but good conduit from the right lower extremity endoscopically. 3. Good quality left internal mammary artery, the LAD was a 2.0-mm vessel with diffuse disease. 4. Ramus intermedius moderate disease including at the site of the anastomosis was an intramyocardial vessel more distally 2.0-mm. 5. Obtuse marginal just at the bifurcation was a 2.0-mm vessel and a 1.5-mm probe passed distally into the ongoing circumflex after the anastomosis just in the proximal portion of the obtuse marginal. OPERATIVE INDICATION: Coronary artery disease. DESCRIPTION OF PROCEDURE: The patient was brought to the operating suite. General anesthesia was obtained, the patient was prepped and draped. Greater saphenous vein harvested endoscopically to right lower extremity. Side branches were divided with electrocautery. The vessel was ligated and removed. Side branches were tied, thin sites were oversewn. Leg was irrigated and closed in 2 layers including Dermabond on the skin. Later it was wrapped with an elastic wrap. OPERATIVE REPORT [id number] EVELIA SANCHEZ Median sternotomy incision was made. Subcutaneous tissues was divided with electrocautery. The sternum was divided with a saw. Left hemisternum was elevated. Left pleural cavity was entered. Left internal mammary artery and veins were taken down as a pedicle graft. Sternal retractor was placed. Pericardium was opened. Heparin was given. Aorta was cannulated. Dual stage venous cannula was inserted and internal mammary was clipped distally and made ready for anastomosis. Activated clotting time was appropriately elevated. The patient was placed on cardiopulmonary bypass. Sites for distal anastomosis were selected. Antegrade cardioplegic cannula was inserted. Crossclamp was placed. Cardioplegia given antegrade and this was repeated at 15 to 20 minute intervals during crossclamp time including down the completed vein grafts. Distal anastomosis was performed in standard technique. Proximal anastomosis with single crossclamp technique. Aortic root was de-aired. Proximal anastomosis tied down. Vein grafts de-aired and flow was restored. Proximal and distal anastomotic sites inspected for bleeding. The patient resumed a spontaneous rhythm, but then was paced atrially after placement of atrioventricular wires due to bradycardia. The patient was fully rewarmed, weaned from cardiopulmonary bypass and was stable. The patient was decannulated. The cannula sites were oversewn. The patient had some slight ST elevation that resolved over time and no wall motion abnormalities by transesophageal echo. Protamine was given. Thorough irrigation was undertaken. Grafts lay appropriately. Hemostasis was ensured. Drains were placed in the mediastinum, one with the tip in the right pleural cavity and two in the left pleural cavity. The internal mammary harvest site inspected for bleeding. Pericardial fat was loosely reapproximated. The left chest was evacuated and irrigated. Sternum was closed with wires. Fascia was closed. Subcutaneous tissue was closed. Skin was closed. Dermabond was placed. The needle and sponge counts were reported as correct. The patient was taken to ICU in stable condition. TRANSINT: Voice Confirmation ID: [id number] DOCUMENT ID: [id number] ARBEN YOUSIF MD at 0753 CC: MAKAYLA SPICER M.D. and FRANCISCO FLOOD MD [id number] DICTATION DATE: 04/02/20 1539 MIND READER: 04/03/20 0041 ADM IN [facility] [address] [place] [id number]
--- NOTE | 2020-04-03 07:55 | NUR ---
DR. YOUSIF HERE. ORDERS TO EXTUBATE PATIENT AND PUT ON MED. SLIDING SCALE INSULIN.
--- NOTE | 2020-04-03 08:17 | NUR ---
EXTUBATED ON 5 LITERS NC. TOLERATED FAIR. MORPHINE GIVEN FOR PAIN.
--- NOTE | 2020-04-03 09:20 | NUR ---
SAT UP ON SIDE OF BEDX 5 MIN. TOLERATED FAIR. INCENTIVE SPIROMETRY IMPROVED UP TO 500 ML. WEAK COUGH.
--- NOTE | 2020-04-03 11:00 | NUR ---
FEW BITES OF JELLO. PO MEDS TAKEN TOLERATED FAIR. STILL STATES SHE IS HURTING EVEN AFTER MORPHINE IV
--- NOTE | 2020-04-03 13:00 | NUR ---
WEANING CLEVIPREX TO KEEP SBP BELOW 140.
--- NOTE | 2020-04-03 14:00 | NUR ---
HERE UPDATE GIVEN. TALKED WITH DR. YOUSIF
--- NOTE | 2020-04-03 14:55 | NUR ---
KCL REPLACEMENT IN PROGRESS
--- NOTE | 2020-04-03 15:06 | CN ---
PATIENT NAME:EVELIA SANCHEZ MEDICAL RECORD: [id number] : 38 LOCATION:RUPAID.CV04 ADMIT DATE: 04/02/20 ACCOUNT: [id number] CONSULTING PHYSICIAN: FRANCISCO FLOOD MD REFERRING PHYSICIAN: QUINTIN YOUSIF MD DATE OF CONSULTATION: 04/02/2020 REQUESTED BY: Dr. Yousif REASON FOR CONSULTATION: Medical management. HISTORY OF PRESENT ILLNESS: This is an 80-year-old female who has been followed by cardiology for years. She had a recent angiography showed multivessel heart disease. It was recommended that she undergo bypass instead of stents. She was seen by Dr. Yousif and was admitted by him today for CABG. She underwent 3-vessel bypass earlier today. She is still on the ventilator, but will wake up and nod her head yes or no. PAST MEDICAL AND SURGICAL HISTORY: She has diabetes, hypertension, hyperlipidemia, history of herpes simplex, anxiety and coronary artery disease. PAST SURGICAL HISTORY: None. ALLERGIES: PENICILLIN. CURRENT MEDICATIONS: Glimepiride 4 mg once a day, atorvastatin 10 mg once a day, Xanax 0.5 mg b.i.d. p.r.n. anxiety, isosorbide mononitrate ER 30 once a day, Tresiba insulin, Pepcid 20 mg once or twice a day. She takes Xalatan and timolol eye drops, she takes acyclovir 400 mg t.i.d. as needed for herpes outbreak. She has either been on losartan 50 once a day or telmisartan 40 once a day. HABITS: Never smokes. No alcohol or drugs. SOCIAL HISTORY: , retired. FAMILY HISTORY: Mother was long-lived and had dementia. REVIEW OF SYSTEMS: GENERAL: No major weight changes. HEENT: No particular sinus or allergy problems. RESPIRATORY: No history of emphysema or asthma or COPD. CARDIAC: See above history. She has been followed by Dr. Plata for several years. GASTROINTESTINAL: She has had some reflux. GENITOURINARY: No significant problems there. MUSCULOSKELETAL: A little if any arthritic aches and pains. NEUROLOGIC: No migraines. No seizures. PSYCHIATRIC: She has had some episodes of anxiety. PHYSICAL EXAMINATION: VITAL SIGNS: Temperature 97.3, pulse 62, respirations 14, blood pressure 124/48. GENERAL: She is arousable, she is on the ventilator at this time. She can nod her head yes or no. CONSULT REPORT [id number] DANIELEVELIA HEART: Regular rate and rhythm. LUNGS: Pretty clear. ABDOMEN: Soft. EXTREMITIES: No edema. LABORATORY DATA: Noted. ASSESSMENT: 1. Diabetes. 2. Coronary artery disease status post coronary artery bypass today. PLAN: We will monitor blood sugars once she starts eating, we will check blood glucose and do a sliding scale. We will continue postoperatively. Thank you Dr. Yousif for this consultation. We will follow with you while she is hospitalized. TRANSINT:[id number] Voice Confirmation ID: [id number] DOCUMENT ID: [id number] FRANCISCO FLOOD MD at 1506 CC: [id number] DICTATION DATE: 04/03/2017 SENIOR COURTROOM CLERK: 04/03/20 0304 ADM IN [facility] [address] [id number]
--- NOTE | 2020-04-03 15:30 | NUR ---
PHYSICAL THERAPY HERE. SAT PATIENT UP ON SIDE OF BED. PATIENT TOLERATED FAIR. AT BEDSIDE.
--- NOTE | 2020-04-03 19:00 | NUR ---
SHIFT ASSESSMENT COMPLETED. PT CARE ASSUMED, MONITORS ON AND WORKING, CAMARGO CATH STAT LOCKED IN PLACE, CHEST TUBES AND HA DRAIN NOTED. PT AWAKE AND ALERT, TURNED AND REPOSITIONED AT THIS TIME. SEE FLOW SHEET FOR FURTHER DETAILS. WILL CONTINUE TO OBSERVE.
--- NOTE | 2020-04-03 21:00 | NUR ---
PT RESTING, TURNED AND REPOSITIONED FOR COMFORT, CALL LIGHT WITHIN REACH, WILL CONTINUE TO OBSERVE.
--- NOTE | 2020-04-03 23:00 | NUR ---
NO CHANGES, SEE FLOW SHEET FOR FURTHER DETAILS. WILL CONTINUE TO OBSERVE.
[2020-04-04] VITALS (24 sets, daily range): BP systolic 107–151; BP diastolic 37–70
--- NOTE | 2020-04-04 01:00 | NUR ---
KCL REPLACEMENT IN PROGRESS
--- NOTE | 2020-04-04 03:00 | NUR ---
NO CHANGES, MONITORS ON AND WORKNG, VSS, CALL LIGHT WITHIN REACH, SEE FLOW SHEET FOR FURTHER DETAILS.
[2020-04-04 04:59] LABS: HEMATOCRIT 33.4 % (36.0-48.0); HEMOGLOBIN 10.8 g/dL (12-16); MCH 30.8 pg (26.0-34.0); MCHC 32.3 g/dL (31.0-37.0); MEAN PLATELET VOLUME 10.3 fL (7.4-10.4); RBC 3.51 10x6/uL (4.00-5.40); RDW 13.6 % (11.5-14.5)
--- NOTE | 2020-04-04 05:00 | NUR ---
KCL REPLACEMENT IN PROGRESS. CHG BATH LINEN CHANGE AND DRESSING CHANGE COMPLETED AT THIS TIME. PT ASSISTED UP TO CHAIR, PT TOLERATED WELL. CALL LIGHT WITHIN REACH, WILL CONTINUE TO OBSERVE.
[2020-04-04 05:17] LABS: MCV 95.2 fL (80.0-100.0); WBC 13.6 10x3/uL (4.8-10.8)
[2020-04-04 05:29] LABS: ALBUMIN 2.9 g/dL (3.4-5.0); ANION GAP 11.3 mmol/L (8-16); BILIRUBIN - TOTAL 0.65 mg/dL (0.2-1.3); CALCIUM 8.5 mg/dL (8.5-10.1); CARBON DIOXIDE 24.7 mmol/L (21.0-32.0); PROTEIN - SERUM 6.1 g/dL (6.4-8.2)
[2020-04-04 05:30] LABS: CREATININE - SERUM 0.9 mg/dL (0.6-1.3)
--- NOTE | 2020-04-04 07:00 | NUR ---
UP IN CHAIR. AWAKES EASILY TO VERBAL STIMULI SKIN WARM AND DRY. SEEMS FAIRLY COMFORTABLE. CHEST TUBES X 2 TO 20 CM SUCTION SERSANG DRAINAGE IN TUBING. NO AIR LEAK. CAMARGO CATH PATENT. HA DRAIN COMPRESSED WITH MINIMAL DRAINAGE IN CONTAINER. MONITOR SR. DRESSING ALL DRY AND INTACT. RIGHT LEG INCISIONS WITHOUT DRAINAGE OR REDNESS. CALL LIGHT WITHIN HANDS REACH.
--- NOTE | 2020-04-04 08:00 | NUR ---
CLEAR LIQUID BREAKFAST SERVED ATE WELL, MOST OF SOUP, JELLO AND JUICE. TOLERATED WELL FEED SELF.
--- NOTE | 2020-04-04 09:00 | NUR ---
DR. YOUSIF HERE. STATES TREAT BLOOD PRESSURE IF GREATER THAN 150.
--- NOTE | 2020-04-04 11:00 | NUR ---
RESTING COMFORTABLY IN CHAIR. NO DISTRESS. NAPPING AT INTERVALS RESP REGULAR. INCENTIVE SPIROMETRY DONE TO 250 ML
--- NOTE | 2020-04-04 13:00 | NUR ---
AMBULATED TO BED. GAIT UNSTEADY. STILL IN ALOT OF PAIN WHEN MOVING. CHEST TUBES INTACT SERSANG DRAINAGE. HA WITH MINIMAL DRAINAGE. CAMARGO CATH PATENT.
--- NOTE | 2020-04-04 14:01 | NUR ---
CHEST TUBES PULLED PER DR. YOUSIF. PATIENT TOLERATED FAIR. 2 BIO PATCH APPLIED AROUND PACEMAKER WIRES, 4X4 APPLIED. SECURE WITH TEGRADERM X 2. BETADINE TO CHEST TUBE SITE.
--- NOTE | 2020-04-04 15:15 | NUR ---
HERE UPDATE GIVEN. PATIENT RESTING COMFORTABLY IN BED. NO DISTRESS. PAIN MUCH BETTER. RIJ FLUSHED WITH SALINE. TAKIGN PO FLUIDS FAIR
--- NOTE | 2020-04-04 16:00 | NUR ---
UP IN CHAIR AT BEDSIDE. VERY SLOW MOVING NEEDS SUPPORT TO WALK. TAKING SMALL SHUFFLING STEPS. HA INTACT. CAMARGO CATH PATENT. AT BEDSIDE.
--- NOTE | 2020-04-04 17:00 | NUR ---
DINNER TRAY SERVED AND SET UP. FEEDING SELF. AT BEDSIDE
--- NOTE | 2020-04-04 19:00 | NUR ---
SHIFT ASSESSMENT COMPLTED. PT CARE ASSUMED, PT AWAKE AND ALERT, CALL LIGHT WITHIN REACH, SEE FLOW SHEET FOR FURTHER DETAILS. WILL CONTINUE TO OBSERVE.
--- NOTE | 2020-04-04 21:00 | NUR ---
NO CHANGES, PT TURNED AND REPOSITIONED FOR COMFORT, CALL LIGHT WITHIN REACH, WILL CONTINUE TO OBSERVE.
--- NOTE | 2020-04-04 23:00 | NUR ---
PT RESTING, SEE FLOW SHEET FOR FURTHER DETAILS. CALL LIGHT WITHIN REACH, WILL CONTINUE TO OBSERVE.
[2020-04-05] VITALS (15 sets, daily range): BP systolic 90–146; BP diastolic 40–68
--- NOTE | 2020-04-05 01:00 | NUR ---
PT TURNED AND REPOSITIONED FOR COMFORT,. MONITORS ON AND WORKING, VSS, CALL LIGHT WITHIN REACH, WILL CONTINUE TO OBSERVE.
--- NOTE | 2020-04-05 03:00 | NUR ---
NO CHANGES SEE FLOW SHEET FOR FURTHER DETAILS. WILL CONTINUE TO OBSERVE.
--- NOTE | 2020-04-05 05:00 | NUR ---
PT ASSISTED UP TO CHAIR AT BEDSIDE, PT TOLERATED WELL, MONITORS ON AND WORKING, VSS, WILL CONTINUE TO OBSERVE.
[2020-04-05 06:56] LABS: HEMATOCRIT 30.6 % (36.0-48.0); HEMOGLOBIN 9.9 g/dL (12-16); MCH 30.8 pg (26.0-34.0); MCHC 32.4 g/dL (31.0-37.0); MCV 95.3 fL (80.0-100.0); MEAN PLATELET VOLUME 10.1 fL (7.4-10.4); RBC 3.21 10x6/uL (4.00-5.40); RDW 13.2 % (11.5-14.5)
[2020-04-05 07:18] LABS: ALBUMIN 2.7 g/dL (3.4-5.0); ANION GAP 9.5 mmol/L (8-16); BILIRUBIN - TOTAL 0.73 mg/dL (0.2-1.3); CALCIUM 8.2 mg/dL (8.5-10.1); CARBON DIOXIDE 25.5 mmol/L (21.0-32.0); CREATININE - SERUM 0.9 mg/dL (0.6-1.3); PROTEIN - SERUM 5.9 g/dL (6.4-8.2)
--- NOTE | 2020-04-05 09:36 | NUR ---
PT UP IN CHAIR FOR BREAKFAST. BREAKFAST TRAY SERVED AND PT EATING WITH OUT PROBLEMS.
--- NOTE | 2020-04-05 10:35 | NUR ---
Nutrition Follow-up: POD 3 CABG. Tolerating PO intake and reports appetite improving. Reports nausea yesterday but none today. -BM; +flatus. Denies chewing/swallowing difficulties. Diet: Diabetic PO intake: 50% Wt: 142# (04/05); 141# (04/03); 152.1# (04/02) Labs noted: Glu 148, Ca 8.2, Alb 2.7 Meds noted: Humulin, Protonix, Carafate, KCl -Encourage PO intake and honor food preferences within diet restrictions. -Offer Glucerna with meals. -Monitor wt. -RD following.
--- NOTE | 2020-04-05 18:50 | NUR ---
RECIVED SHIFT REPORT AT BEDSIDE. PT IS AWAKE A&OX4, VSS. SHE VOICES"I AM ALITTLE SORE ON MY RIGHT LEG". PER PRN ORDER IT IS NOT QUIET TIME FOR HER PAIN MEDICINE BUT I WILL BRING IT TO HER WHEN IT IS TIME. SHE VOICED"OK, THANK YOU". HELPED REPOSTION HER IN BED TO RIGHT SIDE. SHE ALSO USED I S BUT WAS NOT USING IT PROPERLY. SHE WAS BLOWING IN IT INSTEAD OF TAKING A DEEP BREATH. I SHOWED HER AND SHE DEMONSTRATED HOW TO USE IT PROPER WITH A VERY WEAK EFFORT. SHE BARELY CAN PULL 250. FULL ASSESSMENT DONE AND WILL DOC IN FLOWSHEET. NO NEEDS VOICED AT THIS TIME. BED IS LOW,SIDE RAILSX2, PT IS OREINTED TO USE OF CALL LIGHT. WILL CONINTUE TO MONITOR
--- NOTE | 2020-04-05 21:07 | NUR ---
PT IS RESTING IN BED ON LEFT SIDE. SHE VOICES PAIN "YEA IT BETTER" "4/10" NUMERIC SCALE. ADMINISTERED SCHEDULED MEDS AND DOC ON NOV. PT USES I S BUT VERY WEAK EFFORTX3. ONLY PULLS 250. SHE VOICES NO NEEDS OR C/O AT THIS TIME. BED IS LOW,SIDE RAISLX2,CALL LIGHT WITHIN REACH. WILL CONTINUE TO MONITOR
--- NOTE | 2020-04-05 23:12 | NUR ---
PT USES CALL LIGTH AND VOICES "I NEED TO GO THE THE BR". ASSISTED PT UP AND TO THE BR WITH MODERATE ASSIST OUT OF THE BED. SHE HELD MY ARM WHILE WALKING TO BR FOR BALANCE. VOIDED MODERATE AMOUNT OF DARK YELLOW URINE. BACK TO BED SAFELY AND REPOSITIONED TO LEFT SIDE FOR COMFORT. SCD'S HOOKED BACK UP AND ON. VSS. SHE TOLERATED WELL. RE-ASSESSMENT DONE AT THIS TIME AND WILL DON IN FLOWSHEET. PROVIDED HER WITH NEW ICE WATER. BED WAS LEFT LOW,SIDE RAISLX2,CALL LIGHT WTHIN REACH. WILL CONINTUE TO MONITOR
[2020-04-06] VITALS (26 sets, daily range): BP systolic 89–130; BP diastolic 26–66
--- NOTE | 2020-04-06 00:32 | NUR ---
PT IS RESTING IN BED WITH EYES CLOSED, AWAKENS EASILY. VSS. BS IS 107, NO COVERAGE NEEDED. HER PAIN AT THIS TIME IS "4/10" NUMEREIC SCALE ON RIGHT LEG. WILL SCAN AND ADMINISTER PAIN MEDS ORDERED PRN. NO OTHER NEEDS WERE VOICED. SHE MOVES SELF INDEPENDENTLY IN BED. BED IS LOW,SIDE RAISLX2,CALL LIGHT WITHIN REACH. WILL CONTINUE TO MONITOR
--- NOTE | 2020-04-06 01:20 | NUR ---
PT IS RESTING IN BED WITH EYES CLOSED. VSS. BED IS LOW,SIDE RAILSX2,CALL LIGHT WITHIN REACH. WILL CONITNUE TO MONITOR
--- NOTE | 2020-04-06 03:23 | NUR ---
PT IS RESTING IN BED WITH EYES CLOSED. AWAKES EAISLY. IS A&OX4. RE-ASSESSMENT PERFORMED AND WILL DOC IN FLOWSHEET. NO NEEDS OR C/O VOICED AT THIS TIME. REPOSITIONED FOR COMFORT. BED IS LOW,SIDE REAILSX2,CALL LIGHT WITHIN REACH. WILL CONITNUE TO MONITOR
--- NOTE | 2020-04-06 04:40 | NUR ---
PT IS RESTING IN BED AWAKE. VOICESE"I NEED TO GO TO THE BR". ASSITED SAFETLY TO THE BR AND BACK TO BED. PT VOIDED LARGE AMOUNT DARK YELLOW URINE. HELPED REPOSITION IN BED FOR COMFORT. VSS. VOICES"MAN I THINK ILL TAKE A PAIN PILL NOW". WILL SCAN AND ADMINISTER PER PRN ORDER. NO OTHER NEEDS ARE VOICED. SCD'S ARE PLUGGED BACK IN AND ON. BED IS LOW,SIDE RAILSX2,CALL LIGHT WITHIN REACH. WILL CONINTUE TO MONITOR
[2020-04-06 05:47] LABS: HEMATOCRIT 29.7 % (36.0-48.0); HEMOGLOBIN 9.7 g/dL (12-16); MCH 31.4 pg (26.0-34.0); MCHC 32.7 g/dL (31.0-37.0); MCV 96.1 fL (80.0-100.0); MEAN PLATELET VOLUME 9.9 fL (7.4-10.4); RBC 3.09 10x6/uL (4.00-5.40); RDW 13.1 % (11.5-14.5)
[2020-04-06 05:58] LABS: ALBUMIN 2.4 g/dL (3.4-5.0); ANION GAP 10.5 mmol/L (8-16); BILIRUBIN - TOTAL 0.65 mg/dL (0.2-1.3); CALCIUM 7.7 mg/dL (8.5-10.1); CARBON DIOXIDE 25.8 mmol/L (21.0-32.0); CREATININE - SERUM 0.9 mg/dL (0.6-1.3); POTASSIUM - SERUM 3.3 mmol/L (3.5-5.1); PROTEIN - SERUM 5.6 g/dL (6.4-8.2)
--- NOTE | 2020-04-06 06:30 | NUR ---
PT IS RESTING. A&OX4, VSS. ASSISTED TO SIT UP IN CHAIR FOR BREAKFAST. PT TOLERATED WELL. SHE IS POSITIONED FOR COMFORT. CHAIR WHEELS ARE LOCKED. CALL LIGHT IS WITHIN REACH.
--- NOTE | 2020-04-06 08:16 | NUR ---
PT UP IN CHAIR. ASST TO BATHROOM TO VOID.
--- NOTE | 2020-04-06 10:40 | NUR ---
REPLACEMENT OF POTASSIUM DONE. REPETE LABS DONE.
--- NOTE | 2020-04-06 13:02 | NUR ---
PO PAIN MEDS GIVEN AND ENCOURAGED USE OF I.S. PT PULLS 250 WITH POOR EFFORT. ASST TO BATHROOM.
--- NOTE | 2020-04-06 16:49 | NUR ---
CHG BATH DONE. AMB TO BATHROOM TO VOID. PO PAIN MEDS GIVEN.
--- NOTE | 2020-04-06 19:20 | NUR ---
REPORT REC'D PT LYING IN BED ON ROOM AIR, WATCHING TV, AWAKE, ALERT, AND ORIENTED X 3, RIJ DL DRSG CDI, MIDSTERNAL DRSG CDI, SUBSTERNAL DRSG CDI, HA DRAIN COMPRESSED WITH SEROSANGUINOUS DRAINAGE, RIGHT LEG HARVEST SITES, BED IN LOW POSITION, CALL LIGHT IN REACH.
--- NOTE | 2020-04-06 21:00 | NUR ---
EVENING MEDS GIVEN ORDERED, PAIN PILL PROVIDED FOR COMFORT.
--- NOTE | 2020-04-06 23:00 | NUR ---
REASSESSMENT COMPLETED, PT RESTING EYES CLOSED, VSS.
[2020-04-07] VITALS (22 sets, daily range): BP systolic 103–143; BP diastolic 30–85
--- NOTE | 2020-04-07 01:00 | NUR ---
PT AWAKE, COMPLAINS OF LEFT SIDE PAIN, PERCOCET GIVEN PO ORDERED AND PT ASSISTED TO REPOSITION ONTO LEFT SIDE SUPPORTED PILLOWS.
--- NOTE | 2020-04-07 03:30 | NUR ---
REASSESSMENT COMPLETED, NO CHANGES FROM PREVIOUS STATUS
--- NOTE | 2020-04-07 05:30 | NUR ---
AM LAB DRAWN AND SENT TO LAB
[2020-04-07 06:24] LABS: HEMATOCRIT 28.7 % (36.0-48.0); HEMOGLOBIN 9.4 g/dL (12-16); MCH 31.4 pg (26.0-34.0); MCHC 32.8 g/dL (31.0-37.0); MEAN PLATELET VOLUME 9.5 fL (7.4-10.4); RBC 2.99 10x6/uL (4.00-5.40); RDW 13.1 % (11.5-14.5); WBC 6.5 10x3/uL (4.8-10.8)
[2020-04-07 06:40] LABS: ALBUMIN 2.3 g/dL (3.4-5.0); ANION GAP 12.3 mmol/L (8-16); BILIRUBIN - TOTAL 0.55 mg/dL (0.2-1.3); CALCIUM 7.9 mg/dL (8.5-10.1); CARBON DIOXIDE 23.5 mmol/L (21.0-32.0); CREATININE - SERUM 0.9 mg/dL (0.6-1.3); POTASSIUM - SERUM 3.8 mmol/L (3.5-5.1); PROTEIN - SERUM 5.4 g/dL (6.4-8.2)
--- NOTE | 2020-04-07 10:23 | NUR ---
K+ 3.8. KCL REPLACEMENT 5MEQ ORDERED SS GIVEN.
--- NOTE | 2020-04-07 17:19 | MORECARE ---
CASE MANAGEMENT DISCHARGE SUMMARY PATIENT: EVELIA SANCHEZ UNIT: [id number] ADM DATE: 04/02/20 AGE: 80 : 39 SEX: F [facility] AUTHOR: CHRISTINA ORTIZ PHYSICIAN: REFERRING PHYSICIAN: QUINTIN YOUSIF MD DATE OF SERVICE: 04/07/20 Discharge Plan Patient Name: EVELIA [facility]ANCHE[facility] [facility] 1940 Planned Disposition: Home Anticipated Discharge Date: Discharge Date: Expected LOS: Initial Reviewer: [email or web address] Initial Review Date: 04/02/2020 Generated: 04/07/20 6:18 pm DCPIA - Discharge Planning Initial Assessment Updated by [email or web address]: Sherie Serna on 04/07/20 5:18 pm * Is the patient Alert and Oriented? Yes * How many steps to enter\exit or inside your home? * PCP REMIGIO * Pharmacy [facility] * Preadmission Environment Home with Family * ADLs Independent * Equipment Walker * List name and contact numbers for known caregivers / representatives who currently or will assist patient after discharge: YANCY SANCHEZ - SPOUSE - [phone] * Verbal permission to speak to the caregivers and representatives has been obtained from the patient. Yes * Community resources currently utilized None * Additional services required to return to the preadmission environment? No * Can the patient safely return to the preadmission environment? Yes * Has this patient been hospitalized within the prior 30 days at any hospital? No Patient Name: EVELIA SANCHEZ Page [phone] at 1719 All edits/amendments must be made on the electronic document DICTATION DATE: 04/07/201717 BUSINESS SERVICES CLERK: ALIE 04/07/201717 RPT#: [id number] DC DATE: STATUS: ADM IN [facility] [address] [place] [address] END OF REPORT
--- NOTE | 2020-04-07 17:26 | NUR ---
R CVL DCD. TIP INTACT. DSNG APPLIED. ASST PT TO BATHROOM.
--- NOTE | 2020-04-07 17:26 | MORECARE ---
CASE MANAGEMENT DISCHARGE SUMMARY PATIENT: EVELIA SANCHEZ UNIT: [id number] ADM DATE: 04/02/20 AGE: 80 : 39 SEX: F [facility] AUTHOR: CHRISTINA ORTIZ PHYSICIAN: REFERRING PHYSICIAN: QUINTIN YOUSIF MD DATE OF SERVICE: 04/07/20 Discharge Plan Patient Name: EVELIA SANCHEZ Facility: [facility]:[place] : 1940 Planned Disposition: Home Anticipated Discharge Date: Discharge Date: Expected LOS: Initial Reviewer: [email or web address] Initial Review Date: 04/02/2020 Generated: 04/07/20 6:26 pm Comments DCP- Discharge Planning Updated by [email or web address]: Sherie Serna on 04/07/20 4:[address] Patient Name: EVELIA SANCHEZ Admission Status: Urgent Accout number: [id number] Admission Date: 04-02-2020 : 1940 Admission Diagnosis: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 CM educated patient on the CM role and verbal consent given by patient to complete assessment. Patient lives at home with family. Patient is independent. At discharge patient plans to return home and feels this is a safe discharge. CM discussed availability of home health, rehab services, and medical equipment. Patient may be interested in HH upon discharge. CM left HH information and [facility] forms at bedside. Patient will discuss HH with her and let CM know. Patient questioned the need for updrafts when discharged. CM explained that the doctor will let us know and then we can get it setup. Patient will have family to transport home. Patient denied known discharge needs at this time. CM will continue to follow and will assist as needed with dc plans/needs. Retail Selling Floor Leader: Sherie Serna DCPIA - Discharge Planning Initial Assessment Updated by [id number]: Sherie Serna on 04/07/20 5:18 pm * Is the patient Alert and Oriented? Yes * How many steps to enter\exit or inside your home? * PCP REMIGIO * Pharmacy [facility] * Preadmission Environment Home with Family * ADLs Independent * Equipment Walker * List name and contact numbers for known caregivers / representatives who currently or will assist patient after discharge: YANCY SANCHEZ - SPOUSE - [phone] * Verbal permission to speak to the caregivers and representatives has been obtained from the patient. Yes * Community resources currently utilized None * Additional services required to return to the preadmission environment? No * Can the patient safely return to the preadmission environment? Yes * Has this patient been hospitalized within the prior 30 days at any hospital? No Last DP export: 04/07/20 4:19 p Patient Name: EVELIA SANCHEZ Page [phone] at 1726 All edits/amendments must be made on the electronic document DICTATION DATE: 04/07/201725 OPEN HEARTH MELTER: ALIE 04/07/201725 RPT#: [id number] DC DATE: STATUS: ADM IN [facility] [address] [place] [address] END OF REPORT
--- NOTE | 2020-04-07 20:47 | NUR ---
PT RECEIVED WITH EYES OPEN WATCHING TV. VITAL SIGNS STABLE. STAND BY ASSIST TO BATHROOM GIVEN. COMPLAINS OF PAIN WITH PRM PAIN MEDICATION GIVEN. SCHEDULED MEDICATIONS GIVEN PER NOV. TOLERATED WELL. WILL CONTINUE TO OBSERVE.
--- NOTE | 2020-04-07 22:29 | NUR ---
PT RESTING WITH EYES CLOSED AND CHEST RISING. NO S/S OF DISTRESS. CALL LIGHT IN REACH. WILL CONTINUE TO OBSERVE.
--- NOTE | 2020-04-07 23:41 | NUR ---
PT UP TO BATHROOM, URINE ONLY NOTED. IN BED ON MONITOR. NO NEEDS NOTED AT THIS TIME. CALL LIGHT IN REACH. WILL CONTINUE TO OBSERVE.
[2020-04-08] VITALS (24 sets, daily range): BP systolic 94–125; BP diastolic 35–79
[2020-04-08 06:56] LABS: HEMATOCRIT 32.2 % (36.0-48.0); HEMOGLOBIN 10.3 g/dL (12-16); MCH 30.2 pg (26.0-34.0); MCV 94.4 fL (80.0-100.0); MEAN PLATELET VOLUME 9.9 fL (7.4-10.4); RBC 3.41 10x6/uL (4.00-5.40); RDW 12.8 % (11.5-14.5); WBC 6.9 10x3/uL (4.8-10.8)
[2020-04-08 07:22] LABS: ALBUMIN 2.6 g/dL (3.4-5.0); ANION GAP 13.2 mmol/L (8-16); BILIRUBIN - TOTAL 0.59 mg/dL (0.2-1.3); CALCIUM 9.1 mg/dL (8.5-10.1); CARBON DIOXIDE 26.5 mmol/L (21.0-32.0); CREATININE - SERUM 0.9 mg/dL (0.6-1.3); POTASSIUM - SERUM 3.7 mmol/L (3.5-5.1); PROTEIN - SERUM 6.3 g/dL (6.4-8.2)
--- NOTE | 2020-04-08 08:06 | TEE ---
PATIENT:EVELIA SANCHEZ MEDICAL RECORD: [id number] LOCATION:[place] [address] AGE OF PATIENT: 80 ADMISSION DATE: 04/02/20 SEX: F REFERRING PHYSICIAN: INTERPRETING PHYSICIAN: JESSICA LANDAVERDE MD TRANSESOPHAGEAL ECHOCARDIOGRAM Date: 04/02/20 SHAHID CHARGE Y INDICATIONS: CABG PREMEDICATIONS: PATIENT'S RESPONSE PROCEDURE DOPPLER MEASUREMENTS: LVIT LA PA RA LVOT RVOT Asc. Ao AV Gradient Peak AV Mean AV Area MV Gradient Peak MV Mean MV Area INTERPRETATION: Doppler: 2-D: COLOR FLOW DOPPLER NORMAL SALINE STUDY: MISCELLANOUS: DIAGNOSIS: PLAN: Agriculturist:3 Dr. Acevedo Brand Planner: Dwain BRYAN COMMENTS: DATE OF SERVICE: 04/02/2020 PROCEDURE: Intraoperative SHAHID. Pre-CABG shows a normal LV wall motion, normal wall thickening, normal EF 55%. Aortic valve is tricuspid with good valve excursion. Left atrium appears normal. Mitral valve appears normal. Trace MR. Postoperatively, good wall motion. Good wall thickening. Normal EF 55%. Aortic valve is tricuspid with good valve excursion. Left atrium appears normal. Mitral valve appears normal. TRANSESOPHAGEAL ECHOCARDIOGRAM REPORT [id number] CALVIN SANCHEZ Trivial MR. TRANSINT:[id number] Voice Confirmation ID: [id number] DOCUMENT ID: [id number] at 0806 CC: [id number] DICTATION DATE: 04/02/20 1424 GEOTHERMAL HEAT PUMP MACHINIST: 04/02/20 1455 ADM IN [id number] [place] [address]
--- NOTE | 2020-04-08 09:00 | NUR ---
AMBULATED TO BATHROOM. REPORTED BM AT THIS TIME. NO FURTHER NEED. WILL CONTINUE TO MONITOR.
--- NOTE | 2020-04-08 10:27 | NUR ---
PT PULLS 500 ON I.S. NEEDS CONSTANT ENCOURAGEMENT. PT STATES THAT SHE FEEL WEAKER THAN SHE HAS BEEN. CURRENTLY IN CHAIR. NO FURTHER NEEDS. WILL CONTINUE TO MONITOR.
--- NOTE | 2020-04-08 12:40 | NUR ---
Nutrition Follow-up: POD 6 CABG. Ate ~50% of breakfast this AM. Has been drinking Glucerna PRN; asked to have it with all meals. Denies N/V. BM today. C/o sore abdomen. Diet: Diabetic PO intake: 56% avg x 10 meals Wt: 143.3# (04/08); 142# (04/05); 152.1# (04/02) Labs noted: Glu 86, Alb 2.6 Meds noted: Lasix, KDur, Protonix, Humulin, Carafate -Encourage PO intake and honor food preferences within diet restrictions. -+Glucerna with meals per pt request. -Monitor wt. -RD following.
--- NOTE | 2020-04-08 17:22 | NUR ---
1500 PT ASSISTED UP TO CHAIR, ABLE TOAMBULATE TO BATHROOM WITH STAND BY ASSIST 1700 DINNER TRAY SERVED
--- NOTE | 2020-04-08 19:00 | NUR ---
PT ASSESSMENT COMPLETED AT THIS TIME, NO CHANGES NOTED FROM NURSE REPORT, PT IS AAOX4, PT DENIES ANY DISCOMFORT OR DISTRESS AT THIS TIME, VSS, WILL MONITOR FOR CHANGES
--- NOTE | 2020-04-08 21:00 | NUR ---
PT RESTING IN BED WATCHING TV, NO DISTRESS NOTED, VSS
--- NOTE | 2020-04-08 23:00 | NUR ---
PT REASSESSMENT COMPLETED AT THIS TIME, NO CHANGES NOTED FROM PREVIOUS EXAM, VSS
[2020-04-09] VITALS (23 sets, daily range): BP systolic 104–142; BP diastolic 35–99
--- NOTE | 2020-04-09 01:00 | NUR ---
PT RESTING IN BED WITH EYES CLOSED, RESP EVEN AND NON-LABORED, VSS
--- NOTE | 2020-04-09 03:00 | NUR ---
PT REASSESSMENT COMPLETED AT THIS TIME, NO CHANGES NOTED FROM PREVIOUS EXAM, VSS
--- NOTE | 2020-04-09 03:55 | NUR ---
WOKE PT FOR HER FSBS CHECK. FSBS 119. PT RESTING QUIETLY IN BED DENIES ANY CURRENT PAIN OR NEEDS AT THIS TIME AND WOULD LIKE TO GO BACK TO SLEEP. VSS, RR NONLABORED ON RA. CL IN REACH. WILL CPOC.
--- NOTE | 2020-04-09 05:11 | NUR ---
ASSISTED PT TO BR. SHE AMBULATED WITH JUST STAND-BY ASSISTANCE, SLOW STEADY GAIT, PT STATES SLIGHT WEAKNESS BUT ONCE DISCONNECTED SHES FULLY CAPABLE OF AMBULATING TO RESTROOM. PT VOIDED AND IS NOW BACK IN BED. NO CURRENT NEEDS. WILL CTM.
--- NOTE | 2020-04-09 06:38 | NUR ---
PT C/O HER R.LEG HURTING REQUESTING AND PROVIDED WITH PRN PAIN MEDICATION ALONG WITH SOME ORANGE JUICE. PT VOICED THANKS AND WOULD LIKE TO CONTINUE RESTING UNTIL BREAKFAST TIME. NO CURRENT NEEDS.
[2020-04-09 07:07] LABS: ALBUMIN 2.7 g/dL (3.4-5.0); ANION GAP 10.6 mmol/L (8-16); BILIRUBIN - TOTAL 0.62 mg/dL (0.2-1.3); CALCIUM 8.8 mg/dL (8.5-10.1); CARBON DIOXIDE 27.2 mmol/L (21.0-32.0); CREATININE - SERUM 0.9 mg/dL (0.6-1.3); POTASSIUM - SERUM 3.8 mmol/L (3.5-5.1); PROTEIN - SERUM 6.6 g/dL (6.4-8.2)
[2020-04-09 07:49] LABS: HEMATOCRIT 31.8 % (36.0-48.0); HEMOGLOBIN 10.5 g/dL (12-16); MCH 31.3 pg (26.0-34.0); MCV 94.9 fL (80.0-100.0); MEAN PLATELET VOLUME 9.7 fL (7.4-10.4); RBC 3.35 10x6/uL (4.00-5.40); RDW 13.2 % (11.5-14.5); WBC 6.7 10x3/uL (4.8-10.8)
--- NOTE | 2020-04-09 08:08 | NUR ---
MORNING MEDICATIONS GIVEN. PT SITTING UP IN BEDSIDE CHAIR EATING BREAKFAST. PT DENIES ANY CURRENT PAIN OR NEEDS AT THIS TIME. CL IN REACH. WILL CTM.
--- NOTE | 2020-04-09 09:10 | NUR ---
PT ATE AROUND 75% OF HER BREAKFAST. PT VOICED THANKS AND STATES SHE IS FEELING GOOD OVERALL. ROUNDED AND WENT OVER DISCHARGE PLANNING. PT VERBALIZED UNDERSTANDING AND IS INQUIRING ABOUT WHEN HER HA DRAIN WILL BE REMOVED. WILL DISCUSS WITH CARDIOLOGY. PT IS READY TO AMBULATE WITH THERAPY. NO CURRENT NEEDS. WILL CTM.
--- NOTE | 2020-04-09 12:11 | NUR ---
ASSISTED PT WITH HER LUNCH TRAY. FSBS 323 PROVIDED PT WITH INSULIN PER SS. PT VOICED THANKS AND C/O PAIN INCREASING AT HER INCISION SITES, PROVIDED PT WITH PRN PAIN MEDICATION REQUESTED. NO FURTHER NEEDS AT THIS TIME. CL IN REACH. WILL CTM.
--- NOTE | 2020-04-09 13:10 | NUR ---
PT WANTING SUPPLIES TO "CLEAN UP" ASSISTED PT WITH HER STUFF AND SHE BATHED HERSELF. ORAL CARE COMPLETED INDEPENDENTLY. PT IS READY TO JUST REST AT THIS TIME. EMPTIED HA DRAIN OF 30CC SEROUS DRAINAGE. DRSG CDI. NO CURRENT NEEDS. WILL CTM.
--- NOTE | 2020-04-09 17:00 | NUR ---
PT SETTING UP IN BED SIDE CHAIR WITH MEAL TRAY PATIENT STATES THAT SHE WANTED SOMETHING ELSE TO EAT, DIET MESSAGE PLACED FOR ALTERNATE MEAL
--- NOTE | 2020-04-09 17:27 | NUR ---
PT RESTING IN BED, NO COMPLAINTS OR DISTRESS NOTED
--- NOTE | 2020-04-09 19:00 | NUR ---
PT ASSESSMENT COMPLETED AT THIS TIME, NO CHANGES NOTED FROM PREVIOUS EXAM, VSS
--- NOTE | 2020-04-09 20:35 | MORECARE ---
CASE MANAGEMENT DISCHARGE SUMMARY PATIENT: EVELIA SANCHEZ UNIT: [id number] ADM DATE: 04/02/20 AGE: 80 : 39 SEX: F ROOM/BED: D.[facility] AUTHOR: DIAAN,DOC PHYSICIAN: REFERRING PHYSICIAN: QUINTIN YOUSIF MD DATE OF SERVICE: 04/09/20 Discharge Plan Patient Name: EVELIA SANCHEZ Facility: [facility]:[place] : 1940 Planned Disposition: Home Anticipated Discharge Date: Discharge Date: Expected LOS: Initial Reviewer: [email or web address] Initial Review Date: 04/02/2020 Generated: 04/09/20 9:34 pm Comments DCP- Discharge Planning Updated by [id number]: Sherie Serna on 04/09/20 7:[address] Patient spouse have spoken and decided against Home Health at this time. Patient stated that her can take care of her. D/C IMM signed 04/09/20 @ 1945. CM will continue to follow and assist as needed with discharge planning / needs. 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 CM educated patient on the CM role and verbal consent given by patient to complete assessment. Patient lives at home with family. Patient is independent. At discharge patient plans to return home and feels this is a safe discharge. CM discussed availability of home health, rehab services, and medical equipment. Patient may be interested in HH upon discharge. CM left HH information and [facility] forms at bedside. Patient will discuss HH with her and let CM know. Patient questioned the need for updrafts when discharged. CM explained that the doctor will let us know and then we can get it setup. Patient will have family to transport home. Patient denied known discharge needs at this time. CM will continue to follow and will assist as needed with dc plans/needs. Residential Door Unit Installer: Sherie Serna DCPIA - Discharge Planning Initial Assessment Updated by [id number]: Sherie Serna on 04/07/20 5:18 pm * Is the patient Alert and Oriented? Yes * How many steps to enter\exit or inside your home? * PCP REMIGIO * Pharmacy [facility] * Preadmission Environment Home with Family * ADLs Independent * Equipment Walker * List name and contact numbers for known caregivers / representatives who currently or will assist patient after discharge: YANCY SANCHEZ - SPOUSE - [phone] * Verbal permission to speak to the caregivers and representatives has been obtained from the patient. Yes * Community resources currently utilized None * Additional services required to return to the preadmission environment? No * Can the patient safely return to the preadmission environment? Yes * Has this patient been hospitalized within the prior 30 days at any hospital? No Coverage Notice Reviewer: [id number] - Sherie Serna Notice Issued Date-Time: 04/09/2020 19:45 Notice Type: IM Discharge Notice Notice Delivered To: Patient Relationship to Patient: Self Framing Mill Operator Name: Delivery Method: HAND - Hand Delivered Shavon Days: Prior Verbal Notification: Recipient Understood Notice: Yes Recipient Signature: Yes Med Rec Note Co-signed by Attending: Coverage Notice Comment: Last DP export: 04/07/20 4:26 p Patient Name: EVELIA SANCHEZ Page 63047 at 2034 All edits/amendments must be made on the electronic document DICTATION DATE: 04/09/202034 ENDLESS TRACK VEHICLE MECHANIC: ALIE 04/09/202034 RPT#: [id number] DC DATE: STATUS: ADM IN [facility] [address] [place] [address] END OF REPORT
--- NOTE | 2020-04-09 21:00 | NUR ---
PT RESTING IN BED, NO DISTRESS NOTED, VSS
--- NOTE | 2020-04-09 23:00 | NUR ---
pt reassessment completed at this time, no changes noted from previous exam, vss
[2020-04-10] VITALS (10 sets, daily range): BP systolic 106–128; BP diastolic 44–68
[2020-04-10] MEDS ORDERED: TRESIBA FL100 UNIT/1 SQ (00:19)
--- NOTE | 2020-04-10 01:00 | NUR ---
PT RESTING WITH EYES CLOSED, REP EVEN AND NONLABORED, VSS
--- NOTE | 2020-04-10 03:30 | NUR ---
PT A/OX4, UP TO BATHROOM WITH MIN ASSIST, NO C/O @ THIS TIME
--- NOTE | 2020-04-10 07:00 | NUR ---
REPORT RECEIEVED FROM THE OFF GOING RN. PT SITTING OOB IN THE BEDSIDE CHAIR. VSS. NSR ON THE MONITOR. PT DENIES PAIN AT THIS TIME. PT PULLING ABOUT 500 TO 750 ON HER IS. INSTRUCTED PT TO USE 10X'S/H. MIDSTERNAL AND SUBSTERNAL DRESSING C/D/I. RLE HARVEST SITES FOREST NURSERY SUPERVISOR AND WELL APPROIXIMATED. NO S/SX OF INFECTION NOTED. CALL LIGHT IN REACH. WILL CONT POC.
--- NOTE | 2020-04-10 08:00 | NUR ---
PT BACK FROM PA AND LAT. AM MEDS GIVEN WITH NO ISSUES. BREAKFAST TRAY PROVIDED FOR THE PTS. CALL LIGHT IN REACH. WILL CONT POC.
--- NOTE | 2020-04-10 09:30 | NUR ---
PT AMBULATED 500 FEET WITH PHYSICAL THERAPY. SLOW AND STEADY GAIT NOTED WITH NO ISSUES. VSS. PT TOLERATED WELL. WILL CONT POC.
--- NOTE | 2020-04-10 11:00 | NUR ---
REASSESSMENT COMPLETED. SEE FLOW SHEET.
--- NOTE | 2020-04-10 12:00 | NUR ---
MEAL TRAY PROVIDED. DENIES PAIN/NEEDS AT THIS TIME. WILL CONT POC.
--- NOTE | 2020-04-10 12:28 | NUR ---
Nutrition Follow-up: POD 8 CABG. Pt reports eating <=50% of breakfast this AM. C/o nausea and abd discomfort. Asked to d/c Glucerna 2/2 gas. Diet: Diabetic, Glucerna TID Wt: 142.1# (04/10); 143.3# (04/08); 141# (04/03); 152.1# (04/02) Last BM: 04/10 Labs noted: Glu 120 Meds noted: Lantus, Amaryl, Humulin, KDur, Protonix, Carafate -Encourage PO intake and honor food preferences within diet restrictions. -D/c Glucerna per pt request. -Monitor wt. -RD following.
--- NOTE | 2020-04-10 13:00 | NUR ---
ASSUMED CARE OF PATIENT FROM HEIDI. PATIENT UP IN CHAIR IN CV01. NO C/O.
[2020-04-10] MEDS ORDERED: LOPRESSOR25 MG PO (14:36)
[2020-04-10] MEDS ORDERED: PERCOCET 5-3251 TAB PO (14:40)
[2020-04-10] MEDS ORDERED: HYDROCODON-ACE1 EAC7 PO (14:45)
--- NOTE | 2020-04-10 15:30 | NUR ---
DISCHARGE INSTRUCTIONS GIVEN BY JUAN VALENZUELA.
--- NOTE | 2020-04-10 15:45 | NUR ---
MEDIASTINAL DRESSING REMOVED. INCISION CLEAN AND DRY. DISCHARGE INSTRUCTIONS WITH FOLLOW-UP APPOINTMENTS GIVEN. DISCHARGE PAPERWORK SIGNED BY PATIENT. DISCHARGED VIA WHEELCHAIR TO HOME VIA PRIVAT CAR WITH .
--- NOTE | 2020-04-10 18:07 | MORECARE ---
CASE MANAGEMENT DISCHARGE SUMMARY PATIENT: EVELIA SANCHEZ UNIT: [id number] ADM DATE: 04/02/20 AGE: 80 : 39 SEX: F ROOM/BED: D.01 AUTHOR: DIANA,DOC PHYSICIAN: REFERRING PHYSICIAN: QUINTIN YOUSIF MD DATE OF SERVICE: 04/10/20 Discharge Plan Patient Name: EVELIA SANCHEZ Facility: [facility]:[place] : 1940 Planned Disposition: Home Anticipated Discharge Date: 04/10/20 Discharge Date: 04/10/2020 Expected LOS: 8 Initial Reviewer: [email or web address] Initial Review Date: 04/02/2020 Generated: 04/10/20 7:06 pm Comments DCP- Discharge Planning Updated by [id number]: Sherie Serna on 04/09/20 7:[address] Patient spouse have spoken and decided against Home Health at this time. Patient stated that her can take care of her. D/C IMM signed 04/09/20 @ 1945. CM will continue to follow and assist as needed with discharge planning / needs. 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 CM educated patient on the CM role and verbal consent given by patient to complete assessment. Patient lives at home with family. Patient is independent. At discharge patient plans to return home and feels this is a safe discharge. CM discussed availability of home health, rehab services, and medical equipment. Patient may be interested in HH upon discharge. CM left HH information and [facility] forms at bedside. Patient will discuss HH with her and let CM know. Patient questioned the need for updrafts when discharged. CM explained that the doctor will let us know and then we can get it setup. Patient will have family to transport home. Patient denied known discharge needs at this time. CM will continue to follow and will assist as needed with dc plans/needs. Home Based Assistant: Sherie Serna DCPIA - Discharge Planning Initial Assessment Updated by [email or web address]: Sherie Serna on 04/07/20 5:18 pm * Is the patient Alert and Oriented? Yes * How many steps to enter\exit or inside your home? * PCP REMIGIO * Pharmacy [facility] * Preadmission Environment Home with Family * ADLs Independent * Equipment Walker * List name and contact numbers for known caregivers / representatives who currently or will assist patient after discharge: YANCY SANCHEZ - SPOUSE - [phone] * Verbal permission to speak to the caregivers and representatives has been obtained from the patient. Yes * Community resources currently utilized None * Additional services required to return to the preadmission environment? No * Can the patient safely return to the preadmission environment? Yes * Has this patient been hospitalized within the prior 30 days at any hospital? No Coverage Notice Reviewer: [id number] - Sherie Serna Notice Issued Date-Time: 04/09/2020 19:45 Notice Type: IM Discharge Notice Notice Delivered To: Patient Relationship to Patient: Self Air Purifier Servicer Name: Delivery Method: HAND - Hand Delivered Shavon Days: Prior Verbal Notification: Recipient Understood Notice: Yes Recipient Signature: Yes Med Rec Note Co-signed by Attending: Coverage Notice Comment: Last DP export: 04/09/20 7:35 p Patient Name: EVELIA SANCHEZ Page 83148 at 1807 All edits/amendments must be made on the electronic document DICTATION DATE: 04/10/201805 LOGISTICS ADMINISTRATOR: ALIE 04/10/201805 RPT#: [id number] DC DATE:04/10/20 STATUS: DIS IN [facility] [address] [place] [address] END OF REPORT
== END 2020-04-10 15:45 | disposition home or self-care (01) | DRG 236 ==
LOC: D.SDCHOLD 03-28 08:00 → D.CVICU 04-02 05:34 → D.SDCHOLD 04-02 07:30 → D.CVICU 04-02 09:49
PROVIDERS: ADMIT Thoracic Surgery (Cardiothoracic Vascular Surgery); ATTEND Thoracic Surgery (Cardiothoracic Vascular Surgery)
PROC: 021109W Bypass Coronary Artery, Two Arteries from Aorta with Autologous Venous Tissue, Open Approach (ICD-10-PCS; 2020-04-02)
PROC: 06BP4ZZ Excision of Right Saphenous Vein, Percutaneous Endoscopic Approach (ICD-10-PCS; 2020-04-02)
PROC: B24BZZ4 Ultrasonography of Heart with Aorta, Transesophageal (ICD-10-PCS; 2020-04-02)
PROC: 5A1221Z Performance of Cardiac Output, Continuous (ICD-10-PCS; 2020-04-02)
PROC: 02100Z9 Bypass Coronary Artery, One Artery from Left Internal Mammary, Open Approach (ICD-10-PCS; principal; 2020-04-02 07:30)
DX: I25.110 Atherosclerotic heart disease of native coronary artery with unstable angina pectoris (principal); I10 Essential (primary) hypertension; E78.5 Hyperlipidemia, unspecified; E11.65 Type 2 diabetes mellitus with hyperglycemia

== ENCOUNTER → 2020-04-29 12:58 | Outpatient (CLI) | payer MEDICARE ==
[2020-04-03 11:22] VITALS: BMI 25.8
[~2020-04-29 12:58] MED LIST changes: +LOPRESSOR25 MG PO; +MICARDIS40 MG PO; +PERCOCET 5-3251 TAB PO; +TRESIBA FL100 UNIT/1 SQ; +TURMERIC PO; +VITAMIN B-121000 MCG PO; +VITAMIN D1000 UNIT PO
[2020-04-29 14:09] LABS: BASOPHILS 0.6 % (0-2); EOSINOPHILS 11.9 % (0-7); HEMATOCRIT 34.9 % (36.0-48.0); HEMOGLOBIN 10.8 g/dL (12-16); IMMATURE GRANULOCYTES 0.2 % (0-5); LYMPHOCYTES 45.9 % (15-50); MCH 30.9 pg (26.0-34.0); MCHC 30.9 g/dL (31.0-37.0); MCV 99.7 fL (80.0-100.0); MEAN PLATELET VOLUME 9.6 fL (7.4-10.4); NEUTROPHILS 34.4 % (40-80); PLATELET COUNT 251 10x3/uL (130-400); WBC 5.4 10x3/uL (4.8-10.8)
[2020-04-29 14:26] LABS: ANION GAP 9.9 mmol/L (8-16); CALCIUM 9.6 mg/dL (8.5-10.1); CARBON DIOXIDE 27.3 mmol/L (21.0-32.0); CREATININE - SERUM 0.9 mg/dL (0.6-1.3); POTASSIUM - SERUM 4.2 mmol/L (3.5-5.1)
== END | disposition home or self-care (01) ==
LOC: D.LAB 12:58
PROVIDERS: ATTEND Thoracic Surgery (Cardiothoracic Vascular Surgery)
DX: Z95.1 Presence of aortocoronary bypass graft (principal)

== ENCOUNTER → 2020-05-07 08:50 | Outpatient (CLI) | payer MEDICARE ==
[2020-04-03 11:22] VITALS: BMI 25.8
== END | disposition home or self-care (01) ==
LOC: D.CT 08:50
PROVIDERS: ATTEND Thoracic Surgery (Cardiothoracic Vascular Surgery)
DX: R07.9 Chest pain, unspecified (principal); Z95.1 Presence of aortocoronary bypass graft

== ENCOUNTER 2020-05-13 09:03 | Inpatient (IN) | payer MEDICARE ==
[~2020-05-13] VITALS: Ht 157.5 cm; Wt 61.2 kg
[2020-05-13 09:32] LABS: HEMATOCRIT 35.8 % (36.0-48.0); HEMOGLOBIN 11.4 g/dL (12-16); MCH 30.6 pg (26.0-34.0); MCHC 31.8 g/dL (31.0-37.0); MEAN PLATELET VOLUME 9.3 fL (7.4-10.4); RBC 3.73 10x6/uL (4.00-5.40); RDW 13.5 % (11.5-14.5); WBC 6.1 10x3/uL (4.8-10.8)
[2020-05-13 09:42] LABS: INR 1.19 (0.85-1.17)
[2020-05-13 09:43] LABS: ANION GAP 15.8 mmol/L (8-16); APTT 60.4 SECONDS (22.8-39.4); CALCIUM 9.7 mg/dL (8.5-10.1); CARBON DIOXIDE 27.9 mmol/L (21.0-32.0); POTASSIUM - SERUM 3.7 mmol/L (3.5-5.1)
[2020-05-13 09:57] LABS: BILIRUBIN NEGATIVE (NEGATIVE); GLUCOSE NEGATIVE (NEGATIVE); KETONE NEGATIVE (NEGATIVE); NITRITE NEGATIVE (NEGATIVE); UROBILINOGEN NORMAL (NORMAL)
[2020-05-13 09:58] LABS: BACTERIA FEW /hpf (NEGATIVE); EPITHELIAL CELLS 0-5 /hpf (0-5); WHITE CELLS - URINE 0-5 /hpf (NEGATIVE)
[2020-05-13 10:25] VITALS: BP 146/66; BMI 24.9
--- NOTE | 2020-05-13 15:12 | NUR ---
1452 NO POST OP ORDERS IN COMPUTER. DR YOUSIF'S NURSE,DAWN, NOTIFED VIA TEXT.
--- NOTE | 2020-05-13 16:30 | NUR ---
1610 PLACED BNC 2L/MIN BACK ON PT DUE TO DROP IN OXYGEN SATURATION TO LOW 90'S. PT AA0X3. STATES HER PAIN LEVEL REMAINS A 7 OUT OF10. 1630 PT MEDICATED FOR PAIN ORDERED. REPORT GIVEN TO MARY BLAKE RN ON MED2. HAND OFF REPORT IN OPS GIVEN TO JAVED ALDRICH RN
--- NOTE | 2020-05-13 17:24 | NUR ---
PT ARRIVED VIA WHEELCHAIR. ALERT AND ORIENTED, UP WITH MIN ASSIST. AT BEDSIDE. CL IN REACH, SRX2.
--- NOTE | 2020-05-13 19:00 | NUR ---
PT HAD MANY QUESTIONS ON INITIAL ROUNDS BED LOW AND LOCKED CALL LIGHT IS IN REACH
[2020-05-13 20:00] VITALS: BP 145/46
[2020-05-14 04:00] VITALS: BP 143/53
--- NOTE | 2020-05-14 07:30 | NUR ---
REPORT RECIEVED. PT SITTING UP ON BEDSIDE. RR EVEN AND UNLABORED ON RA. PT HAS A L WRIST PIV THAT IS SL. PT HAS A WOUND VAC TO MIDLINE. BED LOCKED AND IN LOWEST POSITION, CALL LIGHT WITHIN REACH. WILL CTM
[2020-05-14 08:00] VITALS: BP 136/67
[2020-05-14 09:08] LABS: BASOPHILS 0.5 % (0-2); EOSINOPHILS 9.2 % (0-7); HEMATOCRIT 33.8 % (36.0-48.0); HEMOGLOBIN 10.9 g/dL (12-16); LYMPHOCYTES 30.3 % (15-50); MCH 31.1 pg (26.0-34.0); MCHC 32.2 g/dL (31.0-37.0); MCV 96.3 fL (80.0-100.0); MEAN PLATELET VOLUME 9.6 fL (7.4-10.4); MONOCYTES 7.5 % (2-11); NEUTROPHILS 52.5 % (40-80); PLATELET COUNT 265 10x3/uL (130-400); RBC 3.51 10x6/uL (4.00-5.40); RDW 13.5 % (11.5-14.5); WBC 5.8 10x3/uL (4.8-10.8)
[2020-05-14 09:18] LABS: ANION GAP 10.9 mmol/L (8-16); CALCIUM 8.8 mg/dL (8.5-10.1); CARBON DIOXIDE 27.8 mmol/L (21.0-32.0); CREATININE - SERUM 0.9 mg/dL (0.6-1.3); POTASSIUM - SERUM 3.7 mmol/L (3.5-5.1)
[2020-05-14 11:00] VITALS: BP 135/61
[2020-05-14 12:43] VITALS: Ht 157.5 cm; Wt 61.2 kg
[2020-05-14 15:00] VITALS: BP 123/58
--- NOTE | 2020-05-14 15:07 | NUR ---
I have reviewed this patient and I concur with the Shift Assessment completed by the Licensed Practical Nurse today this shift.
--- NOTE | 2020-05-14 20:06 | NUR ---
awake and alert wants iv out bed low and locked call light in place and wound vac to suction
[2020-05-14 22:30] VITALS: BP 127/68
[2020-05-15 04:30] VITALS: BP 144/60
--- NOTE | 2020-05-15 08:39 | CN ---
PATIENT NAME:CALVIN SANCHEZ MEDICAL RECORD: [id number] : 38 LOCATION:D. D.2109 ADMIT DATE: 05/13/20 ACCOUNT: [id number] CONSULTING PHYSICIAN: FRANCISCO FLOOD MD REFERRING PHYSICIAN: QUINTIN URBINA MD DATE OF CONSULTATION: 05/14/2020 REQUESTING PHYSICIAN: Dr. Urbina REASON FOR CONSULTATION: Medical management. HISTORY OF PRESENT ILLNESS: This is an 80-year-old female who underwent 3-vessel coronary artery bypass approximately [address] Urbina. She has done well; however, she had one area on her sternum of a nonhealing wound and he admitted her for superficial wound dehiscence. She underwent wound debridement and placement of a wound VAC and I am consulted for medical management. PAST MEDICAL HISTORY: Diabetes, hypertension, hyperlipidemia, history of herpes simplex, anxiety, and coronary artery disease. PAST SURGICAL HISTORY: Only the coronary artery bypass graft done on 04/02/2020. ALLERGIES: PENICILLIN. HABITS: Never smoked. No alcohol or drugs. SOCIAL HISTORY: , retired. FAMILY HISTORY: Mother with long lived and had dementia. HOME MEDICATIONS: Cetirizine 10 mg daily, metoprolol 12.5 mg twice a day, atorvastatin 10 mg once a day, hydrocodone 5/325 one half to 1 p.r.n. pain, alprazolam 0.5 b.i.d. p.r.n., latanoprost 0.005% ophthalmic drops 1 drop left eye at bedtime, Timoptic 0.5% ophthalmic drops 1 drop in each eye twice a day, Carafate a.c., Pepcid 20 mg once a day, glimepiride 4 mg daily with breakfast, Tresiba insulin 24 units at bedtime, vitamin D 1000 units daily, B12 1000 mcg daily, turmeric 500 mg daily. PHYSICAL EXAMINATION: VITAL SIGNS: Temperature 98.2, pulse 94, respirations 18, blood pressure 136/67, O2 sat 97%. GENERAL: She is awake and alert. She does not appear in acute distress. She has a wound VAC in place on her sternum. HEENT: Unremarkable. NECK: Supple. HEART: Regular rate and rhythm without murmur. LUNGS: Clear. ABDOMEN: Soft. EXTREMITIES: No edema. LABORATORY DATA: Pending. ASSESSMENT: 1. Diabetes. CONSULT REPORT [id number] CALVIN SANCHEZ 2. Wound dehiscence status post debridement and placement of wound VAC by Dr. Urbina yesterday. PLAN: We will monitor blood sugar and her blood pressure. Continue her usual meds. We will follow along. Thank you for the consult. TRANSINT:[id number] Voice Confirmation ID: [id number] DOCUMENT ID: [id number] FRANCISCO FLOOD MD at 0839 CC: [id number] DICTATION DATE: 05/14/20 184 LOCAL AREA NETWORK ADMINISTRATOR: 05/15/20 0119 ADM IN [facility] [address] [place] [id number]
[2020-05-15 08:46] VITALS: BP 143/59
[2020-05-15 11:59] VITALS: BP 147/56
--- NOTE | 2020-05-15 15:28 | NUR ---
TELEMETRY SR 78. IV SL LEFT WRIST INTACT. AT BS. WAITING FOR NURSE TO DEENA W/Chris PRABHAKAR. WILL CONT PLAN OF CARE.
[2020-05-15 17:08] VITALS: BP 143/60
--- NOTE | 2020-05-15 18:10 | NUR ---
PATIENT WOUND VAC CHANGED AT THIS TIME. WOUND PINK WITH NO SIGNS OF INFECTION. PATIENT TOLERATED WITH SMALL AMOUNT OF PAIN. CALL LIGHT WITHIN REACH.
--- NOTE | 2020-05-15 19:30 | NUR ---
PT IN BED, PT AAO X 3, RESP EVEN AND UNLABORED, NO DISTRESS NOTED, CL IN REACH, SR UP X 2.
[2020-05-15 20:30] VITALS: BP 157/64
[2020-05-16 00:30] VITALS: BP 134/57
[2020-05-16 04:30] VITALS: BP 149/70
[2020-05-16 08:09] VITALS: BP 152/75
--- NOTE | 2020-05-16 09:44 | NUR ---
Nutrition Follow-up: Good/fair appetite/PO intake. States Glucerna provided gives her gas; brought Gluceranahi Hunger Smart from home. Diet: Diabetic, Glucerna with breakfast PO intake: 67% avg yesterday Wt: 135# (05/14) Labs noted: Glu 165 Meds noted: Pepcid, Carafate, Amaryl, Humulin -Encourage PO intake and honor food preferences within diet restrictions. -Monitor wt. -RD following.
--- NOTE | 2020-05-16 13:24 | MORECARE ---
CASE MANAGEMENT DISCHARGE SUMMARY PATIENT: CALVIN ENGLISH UNIT: [id number] ADM DATE: 05/13/20 AGE: 80 : 39 SEX: F ROOM/BED: D.2102 AUTHOR: CHRISTINA ORTIZ PHYSICIAN: REFERRING PHYSICIAN: QUINTIN YOUSIF MD DATE OF SERVICE: 05/16/20 Discharge Plan Patient Name: CALVIN ENGLISH Facility: [facility]:[place] : 1940 Planned Disposition: Home Health Service Anticipated Discharge Date: 05/16/20 Discharge Date: Expected LOS: 3 Initial Reviewer: [email or web address] Initial Review Date: 05/13/2020 Generated: 05/16/20 2:23 pm Comments DCP- Discharge Planning Updated by [email or web address]: Nichelle Up on 05/16/20 12:[address] Contacted Mica, with Dr. Felix [phone]) regarding wound vac. Still pending wound measurements. DCP- Discharge Planning Updated by [email or web address]: Nichelle Up on 05/15/20 4:[address] CM has begun the paperwork on the Wound vac for home use. Explained to the patient that the wound vac must be approved by an outside facility. CM met with patient and spouse, Brian English for DC plans/needs. PCP: Dr. Sim. Pharmacy[facility]. DME: juan pino, shower chair, grab bars. Emergency contact: Brian English (spouse) [phone]. CM discussed [facility], skilled, , rehab. Patient is in agreement with [facility]. Patient choice signed. DC transportation: [facility]. External Providers External Provider: [facility] [employer] Next Contact Date: Service Request Date: Service Type: Resolution: Reviewer: Comments: Patient Name: CALVIN ENGLISH Page 62044 at 1324 All edits/amendments must be made on the electronic document DICTATION DATE: 05/16/20 1323 AUTO INSPECTOR: ALIE 05/16/20 1323 RPT#: [id number] DC DATE: STATUS: ADM IN [facility] [address] [place] [address] END OF REPORT
--- NOTE | 2020-05-16 13:37 | MORECARE ---
CASE MANAGEMENT DISCHARGE SUMMARY PATIENT: CALVIN ENGLISH UNIT: [id number] ADM DATE: 05/13/20 AGE: 80 : 39 SEX: F ROOM/BED: D.2103 AUTHOR: CHRISTINA ORTIZ PHYSICIAN: REFERRING PHYSICIAN: QUINTIN YOUSIF MD DATE OF SERVICE: 05/16/20 Discharge Plan Patient Name: CALVIN ENGLISH Facility: [facility]:[place] : 1940 Planned Disposition: Home Health Service Anticipated Discharge Date: 05/16/20 Discharge Date: Expected LOS: 3 Initial Reviewer: [email or web address] Initial Review Date: 05/13/2020 Generated: 05/16/20 2:36 pm Comments DCP- Discharge Planning Updated by [id number]: Nichelle Up on 05/16/20 12:[address] Contacted Mica, with Dr. Felix [phone]) regarding wound vac. Measurements of 11x5x4 provided to [facility]. Await release of the vac. DCP- Discharge Planning Updated by [email or web address]: Nichelle Up on 05/15/20 4:[address] CM has begun the paperwork on the Wound vac for home use. Explained to the patient that the wound vac must be approved by an outside facility. CM met with patient and spouse, Brian English for DC plans/needs. PCP: Dr. Sim. Pharmacy: [facility]. DME: juan pino, shower chair, grab bars. Emergency contact: Brian English (spouse) [phone]. CM discussed [facility], skilled, , rehab. Patient is in agreement with [facility]. Patient choice signed. DC transportation: [facility]. Last DP export: 05/16/20 12:24 p Patient Name: CALVIN ENGLISH Page 31483 at 1337 All edits/amendments must be made on the electronic document DICTATION DATE: 05/16/20 1336 SEXUAL ASSAULT NURSE: ALIE 05/16/20 1336 RPT#: [id number] DC DATE: STATUS: ADM IN [facility] [address] [place] [address] END OF REPORT
--- NOTE | 2020-05-16 13:47 | MORECARE ---
CASE MANAGEMENT DISCHARGE SUMMARY PATIENT: CAVLIN SANCHEZ UNIT: [id number] ADM DATE: 05/13/20 AGE: 80 : 39 SEX: F ROOM/BED: D.2106 AUTHOR: CHRISTINA ORTIZ PHYSICIAN: REFERRING PHYSICIAN: QUINTIN YOUSIF MD DATE OF SERVICE: 05/16/20 Discharge Plan Patient Name: CALVIN SANCHEZ Facility: [facility]:[place] : 1940 Planned Disposition: Home Health Service Anticipated Discharge Date: 05/16/20 Discharge Date: Expected LOS: 3 Initial Reviewer: [email or web address] Initial Review Date: 05/13/2020 Generated: 05/16/20 2:47 pm Comments DCP- Discharge Planning Updated by [email or web address]: Nichelle Up on 05/16/20 12:[address] CM attempted to contact [facility] [phone]), spoke with Mirian who transferred the call too different extensions and no answer obtained. CM contacted Liza with [facility] [phone]) who states they will accept for M/W/F vac dressing changes. Contacted Mica, with Dr. Felix [phone]) regarding wound vac. Measurements of 11x5x4 provided to [facility]. Await release of the vac. DCP- Discharge Planning Updated by [email or web address]: Nichelle Up on 05/15/20 4:[address] CM has begun the paperwork on the Wound vac for home use. Explained to the patient that the wound vac must be approved by an outside facility. CM met with patient and spouse, Brian Amador for DC plans/needs. PCP: Dr. Sim. Pharmacy: [facility]. DME: walkerjuan, shower chair, grab bars. Emergency contact: Brian Amador (spouse) [phone]. CM discussed [facility], skilled, , rehab. Patient is in agreement with [facility]. Patient choice signed. DC transportation: [facility]. Last DP export: 05/16/20 12:37 p Patient Name: CALVIN SANCHEZ Page 14421 at 1347 All edits/amendments must be made on the electronic document DICTATION DATE: 05/16/201346 CLIENT SERVICES REPRESENTATIVE: ALIE 05/16/20 134 RPT#: [id number] DC DATE: STATUS: ADM IN [facility] [address] [place] [address] END OF REPORT
--- NOTE | 2020-05-16 13:58 | MORECARE ---
CASE MANAGEMENT DISCHARGE SUMMARY PATIENT: CALVIN ENGLISH UNIT: [id number] ADM DATE: 05/13/20 AGE: 80 : 39 SEX: F ROOM/BED: D.5574 AUTHOR: CHRISTINA ORTIZ PHYSICIAN: REFERRING PHYSICIAN: QUINTIN YOUSIF MD DATE OF SERVICE: 05/16/20 Discharge Plan Patient Name: CALVIN ENGLISH Facility: [facility]:[place] : 1940 Planned Disposition: Home Health Service Anticipated Discharge Date: 05/16/20 Discharge Date: Expected LOS: 3 Initial Reviewer: [email or web address] Initial Review Date: 05/13/2020 Generated: 05/16/20 2:58 pm Comments DCP- Discharge Planning Updated by [email or web address]: Nichelle Up on 05/16/20 12:[address] CM attempted to contact [facility] [phone]), spoke with Mirian who transferred the call too different extensions and no answer obtained. CM contacted Liza with [facility] [phone]) who states they will accept for M/W/F vac dressing changes. Contacted [facility], with Dr. Felix [phone]) regarding wound vac. Measurements of 11x5x4 provided to [facility]. Await release of the vac. DCP- Discharge Planning Updated by [email or web address]: Nichelle Up on 05/15/20 4:[address] CM has begun the paperwork on the Wound vac for home use. Explained to the patient that the wound vac must be approved by an outside facility. CM met with patient and spouse, Brian English for DC plans/needs. PCP: Dr. Sim. Pharmacy: [facility]. DME: walkerjuan, shower chair, grab bars. Emergency contact: Brian Amador (spouse) [phone]. CM discussed [facility], skilled, , rehab. Patient is in agreement with [facility]. Patient choice signed. DC transportation: [facility]. External Providers External Provider: [facility] Next Contact Date: Service Request Date: Service Type: Resolution: Reviewer: Comments: Last DP export: 05/16/20 12:47 p Patient Name: CALVIN ENGLISH Page 67714 at 1358 All edits/amendments must be made on the electronic document DICTATION DATE: 05/16/201357 DRESS DESIGNER: ALIE 05/16/201357 RPT#: [id number] DC DATE: STATUS: ADM IN [facility] [address] [place] [address] END OF REPORT
--- NOTE | 2020-05-16 14:08 | MORECARE ---
CASE MANAGEMENT DISCHARGE SUMMARY PATIENT: CALVIN ENGLISH UNIT: [id number] ADM DATE: 05/13/20 AGE: 80 : 39 SEX: F ROOM/BED: D.4041 AUTHOR: CHRISTINA ORTIZ PHYSICIAN: REFERRING PHYSICIAN: QUINTIN YOUSIF MD DATE OF SERVICE: 05/16/20 Discharge Plan Patient Name: CALVIN ENGLISH Facility: [facility]:[place] : 1940 Planned Disposition: Home Health Service Anticipated Discharge Date: 05/16/20 Discharge Date: Expected LOS: 3 Initial Reviewer: [email or web address] Initial Review Date: 05/13/2020 Generated: 05/16/20 3:07 pm Comments DCP- Discharge Planning Updated by [email or web address]: Nichelle Up on 05/16/20 1:[address] CM attempted to contact [facility] [phone]), spoke with Mirian who transferred the call too 2 different extensions and no answer obtained. NEDA contacted Liza with [facility] ([phone]) who states they will accept for M/W/F vac dressing changes. CM faxed required documents to Liza @[phone]. Await release of wound vac. Contacted [facility], with Dr. Felix [phone]) regarding wound vac. Measurements of 11x5x4 provided to [facility]. Await release of the vac. DCP- Discharge Planning Updated by [id number]: Nichelle Up on 05/15/20 4:[address] CM has begun the paperwork on the Wound vac for home use. Explained to the patient that the wound vac must be approved by an outside facility. CM met with patient and spouse, Brian English for DC plans/needs. PCP: Dr. Sim. Pharmacy: [facility]. DME: juan pino, shower chair, grab bars. Emergency contact: Brian English (spouse) [phone]. CM discussed [facility], skilled, , rehab. Patient is in agreement with [facility]. Patient choice signed. DC transportation: [facility]. Last DP export: 05/16/20 12:58 p Patient Name: CALVIN ENGLISH Page 64390 at 1408 All edits/amendments must be made on the electronic document DICTATION DATE: 05/16/201407 CUP MACHINE OPERATOR: ALIE 05/16/201407 RPT#: [id number] DC DATE: STATUS: ADM IN [facility] [address] [place] [address] END OF REPORT
--- NOTE | 2020-05-16 14:44 | NUR ---
TELEMETRY SR 77. W/V INTACT TO LEFT SIDE. WILL CONT. PLAN OF CARE.
--- NOTE | 2020-05-16 19:30 | NUR ---
PT IN BED, AAO X 3, RESP EVEN AND UNLABORED. NO DISTRESS NOTED, NO C/O PAIN AT THIS TIME. CL IN REACH, SR UP X 2.
[2020-05-16 20:00] VITALS: BP 154/65
[2020-05-17] VITALS: BP 138/64
[2020-05-17 04:00] VITALS: BP 146/60
[2020-05-17 08:00] VITALS: BP 144/93
--- NOTE | 2020-05-17 08:48 | NUR ---
SHE REFUSES THE LANTUS INSULIN THIS MORNING. I EXPLAINED TO HER HOW IS WORKS AND SHE SAYS SHE DOES NOT MEMEMBER TAKING IT. SHE SHOULD DISCHARGE TODAY. SHE HAS A WOUND VAC TO HER CHEST WALL. THE CALL LIGHT IS WITHIN REACH.
--- NOTE | 2020-05-17 10:36 | MORECARE ---
CASE MANAGEMENT DISCHARGE SUMMARY PATIENT: CALVIN ENGLISH UNIT: [id number] ADM DATE: 05/13/20 AGE: 80 : 39 SEX: F ROOM/BED: D.2103 AUTHOR: DIANA,DOC PHYSICIAN: REFERRING PHYSICIAN: QUINTIN YOUSIF MD DATE OF SERVICE: 05/17/20 Discharge Plan Patient Name: CALVIN ENGLISH Facility: [facility]:[place] : 1940 Planned Disposition: Home Health Service Anticipated Discharge Date: 05/16/20 Discharge Date: Expected LOS: 3 Initial Reviewer: [id number] Initial Review Date: 05/13/2020 Generated: 05/17/20 11:35 am Comments DCP- Discharge Planning Updated by [email or web address]: Nichelle Up on 05/17/20 9:[address] [facility] paperwork delivered/signed/faxed for release. Notified [employer] of same. #[id number]. Patient's cell #[phone]. DCP- Discharge Planning Updated by [id number]: Nichelle Up on 05/16/20 1:[address] NEDA attempted to contact [facility] [phone]), spoke with Mirian who transferred the call too 2 different extensions and no answer obtained. CM contacted Liza with [facility] ([phone]) who states they will accept for M/W/F vac dressing changes. CM faxed required documents to Liza @[phone]. Await release of wound vac. Contacted [facility], with Dr. Felix [phone]) regarding wound vac. Measurements of 11x5x4 provided to [facility]. Await release of the vac. DCP- Discharge Planning Updated by [id number]: Nichelle Up on 05/15/20 4:[address] CM has begun the paperwork on the Wound vac for home use. Explained to the patient that the wound vac must be approved by an outside facility. CM met with patient and spouse, Brian English for DC plans/needs. PCP: Dr. Sim. Pharmacy: [facility]. DME: juan pino, shower chair, grab bars. Emergency contact: Brian English (spouse) [phone]. CM discussed [facility], skilled, , rehab. Patient is in agreement with [facility]. Patient choice signed. DC transportation: [facility]. Last DP export: 05/16/20 1:08 p Patient Name: CALVIN ENGLISH Page 65353 at 1036 All edits/amendments must be made on the electronic document DICTATION DATE: 05/17/20 1036 MUSIC THERAPY TEACHER: ALIE 05/17/20 1036 RPT#: [id number] DC DATE: STATUS: ADM IN [facility] [address] [place] [address] END OF REPORT
[2020-05-17 11:00] VITALS: BP 155/67
--- NOTE | 2020-05-17 14:07 | NUR ---
WOUND VAC CHANGED OUT, HOME WOUND VAC PLACED. EDUCATED HER ABOUT THE MACHINE AND IF IT BEEPS TO CALL THE HOME HEALTH NURSE. IV REMOVED, PAPERWORK SIGNED AND QUESTIONS ANSWERED.
--- NOTE | 2020-05-17 15:29 | NUR ---
TAKEN DOWNSTAIRS TO THE FRONT DOOR VIA WHEELCHAIR. HAS ALL HER WOUND VAC SUPPLIES. IV OUT.
--- NOTE | 2020-05-17 17:06 | MORECARE ---
CASE MANAGEMENT DISCHARGE SUMMARY PATIENT: CALVIN ENGLISH UNIT: [id number] ADM DATE: 05/13/20 AGE: 80 : 39 SEX: F ROOM/BED: D.2107 AUTHOR: DIANA,DOC PHYSICIAN: REFERRING PHYSICIAN: QUINTIN YOUSIF MD DATE OF SERVICE: 05/17/20 Discharge Plan Patient Name: CALVIN ENGLISH Facility: [facility]:[place] : 1940 Planned Disposition: Home Health Service Anticipated Discharge Date: 05/16/20 Discharge Date: 05/17/2020 Expected LOS: 3 Initial Reviewer: [email or web address] Initial Review Date: 05/13/2020 Generated: 05/17/20 6:06 pm Comments DCP- Discharge Planning Updated by [email or web address]: Nichelle Up on 05/17/20 3:[address] CM spoke with [facility] [place]) and patient will have first dressing change on Wednesday. [facility] paperwork delivered/signed/faxed for release. Notified [employer] in [employer] of same. #[id number]. Patient's cell #[phone]. Wound VAC delivered to patient's room. DCP- Discharge Planning Updated by [id number]: Nichelle Up on 05/16/20 1:[address] CM attempted to contact [facility] [phone]), spoke with Mirian who transferred the call too 2 different extensions and no answer obtained. CM contacted Liza with [facility] ([phone]) who states they will accept for M/W/F vac dressing changes. CM faxed required documents to Liza @[phone]. Await release of wound vac. Contacted [facility], with Dr. Felix [phone]) regarding wound vac. Measurements of 11x5x4 provided to [facility]. Await release of the vac. DCP- Discharge Planning Updated by [id number]: Nichelle Up on 05/15/20 4:[address] CM has begun the paperwork on the Wound vac for home use. Explained to the patient that the wound vac must be approved by an outside facility. CM met with patient and spouse, Brian English for DC plans/needs. PCP: Dr. Sim. [facility]acy[facility]. DME: juan pino, shower chair, [employer]. Emergency contact: Brian English (spouse) [phone]. CM discussed HHS, skilled, , rehab. Patient is in agreement with [facility]. Patient choice signed. DC transportation: Brian. Last DP export: 05/17/20 9:36 a Patient Name: CALVIN ENGLISH Page 84615 at 1706 All edits/amendments must be made on the electronic document DICTATION DATE: 05/17/201705 CLINICAL TEAM LEAD: ALIE 05/17/201705 RPT#: [id number] DC DATE:05/17/20 STATUS: DIS IN [facility] [address] [place] [address] END OF REPORT
--- NOTE | 2020-05-17 17:15 | MORECARE ---
CASE MANAGEMENT DISCHARGE SUMMARY PATIENT: CALVIN ENGLISH UNIT: [id number] ADM DATE: 05/13/20 AGE: 80 : 39 SEX: F ROOM/BED: D.2106 AUTHOR: DIANA,DOC PHYSICIAN: REFERRING PHYSICIAN: QUINTIN YOUSIF MD DATE OF SERVICE: 05/17/20 Discharge Plan Patient Name: CALVIN ENGLISH Facility: [facility]:[place] : 1940 Planned Disposition: Home Health Service Anticipated Discharge Date: 05/16/20 Discharge Date: 05/17/2020 Expected LOS: 3 Initial Reviewer: [id number] Initial Review Date: 05/13/2020 Generated: 05/17/20 6:14 pm Comments DCP- Discharge Planning Updated by [email or web address]: Nichelle Up on 05/17/20 3:[address] CM spoke with [place]) and patient will have first dressing change on Wednesday. [facility] paperwork delivered/signed/faxed for release. Notified [employer]ia in [employer] of same. #[id number]. Patient's cell #[phone]. Wound VAC delivered to patient's room. DCP- Discharge Planning Updated by [email or web address]: Nichelle Up on 05/16/20 1:[address] CM attempted to contact [facility] [phone]), spoke with Mirian who transferred the call too 2 different extensions and no answer obtained. CM contacted Liza with [facility] ([phone]) who states they will accept for M/W/F vac dressing changes. CM faxed required documents to Liza @[phone]. Await release of wound vac. Contacted [facility], with Dr. Felix [phone]) regarding wound vac. Measurements of 11x5x4 provided to [facility]. Await release of the vac. DCP- Discharge Planning Updated by [id number]: Nichelle Up on 05/15/20 4:[address] CM has begun the paperwork on the Wound vac for home use. Explained to the patient that the wound vac must be approved by an outside facility. CM met with patient and spouse, Brian English for DC plans/needs. PCP: Dr. Sim. Pharmacy: [facility]. DME: juan pino, shower chair, [employer]. Emergency contact: Brian English (spouse) [phone]. CM discussed HHS, skilled, , rehab. Patient is in agreement with [facility]. Patient choice signed. DC transportation: Brian. Last DP export: 05/17/20 4:06 p Patient Name: CALVIN ENGLISH Page 81542 at 1715 All edits/amendments must be made on the electronic document DICTATION DATE: 05/17/201713 ASSISTANT [employer]PORATION COUNSEL: ALIE 05/17/201713 RPT#: [id number] DC DATE:05/17/20 STATUS: DIS IN [facility] [address] [place] [address] END OF REPORT
--- NOTE | 2020-05-20 08:02 | OP ---
PATIENT NAME: CALVIN SANCHEZ MEDICAL RECORD: [id number] :[birth year] LOCATION:D.M2 D.2109 ADMISSION DATE:05/13/20 SURGEON: QUINTIN YOUSIF MD DATE OF OPERATION: 05/13/2020 SURGEON: Quintin Yousif MD PROCEDURE PERFORMED: Sternal wound debridement, Pulsavac, placement of wound VAC. PREOPERATIVE DIAGNOSIS: Sternal wound dehiscence and infection. POSTOPERATIVE DIAGNOSIS: Sternal wound dehiscence and infection. ANESTHESIA: General. SPECIMENS: Debrided tissue and cultures. COMPLICATIONS: None. CONDITION: Stable. DISPOSITION: Recovery room. BLOOD LOSS: Minimal. FINDINGS: Below the 0.5 cm wide 4 cm area of eschar on the chest, there was some fat necrosis, but no purulence was identified. This extended down to a sternal wire as seen on the CT scan and the lowest end of the cartilage was not together, but the bone appeared to be solid. Three wires were removed. The upper abdominal fascia was . The preperitoneal fat was normal in appearance. The subcutaneous tissue was debrided. Pulsavac performed. There was no purulent drainage from below the sternum. Wound VAC was placed with white foam deep and black foam near the skin area. The was concerned about the left chest tube site. It was lightly debrided, but appeared to be nearly healed and granulating. OPERATIVE INDICATION: Persistent eschar 6 weeks status post coronary bypass graft in 79-year-old female. PROCEDURE IN DETAIL:. The patient was brought to the operative suite. General anesthesia was obtained, the patient was prepped and draped. The old eschar was incised, subcutaneous tissue debrided, wires removed. Thorough irrigation. Wound packed with wound VAC. The patient was taken to recovery room in stable condition. TRANSINT:[id number] Voice Confirmation ID: [id number] DOCUMENT ID: [id number] OPERATIVE REPORT [id number] CALVIN SANCHEZ DANIEL W MD at 0802 CC: [id number] DICTATION DATE: 05/13/20 1539 PATIENT ASSESSMENT COORDINATOR: 05/13/20 2350 DIS IN 05/17/20 [place] [address]
--- NOTE | 2020-05-22 12:03 | MORECARE ---
CASE MANAGEMENT DISCHARGE SUMMARY PATIENT: INDIRA ENGLISH UNIT: [id number] ADM DATE: 05/13/20 AGE: 80 : 39 SEX: F ROOM/BED: D.2101 AUTHOR: DIANA,DOC PHYSICIAN: REFERRING PHYSICIAN: QUINTIN YOUSIF MD DATE OF SERVICE: 05/22/20 Discharge Plan Patient Name: INDIRA ENGLISH Facility: [facility]:[place] : 1940 Planned Disposition: Home Health Service Anticipated Discharge Date: 05/16/20 Discharge Date: 05/17/2020 Expected LOS: 3 Initial Reviewer: [id number] Initial Review Date: 05/13/2020 Generated: 05/22/20 1:03 pm Comments DCP- Discharge Planning Updated by [id number]: Nichelle Up on 05/17/20 3:[address] CM spoke with Marli [place]) and patient will have first dressing change on Wednesday. [facility] paperwork delivered/signed/faxed for release. Notified [employer] of same. #[id number]. Patient's cell #[phone]. Wound VAC delivered to patient's room. DCP- Discharge Planning Updated by [id number]: Nichelle Up on 05/16/20 1:[address] CM attempted to contact [facility] [phone]), spoke with Mirian who transferred the call too 2 different extensions and no answer obtained. CM contacted Liza with [facility] ([phone]) who states they will accept for M/W/F vac dressing changes. CM faxed required documents to Liza @[phone]. Await release of wound vac. Contacted [facility], with Dr. Felix [phone]) regarding wound vac. Measurements of 11x5x4 provided to [facility]. Await release of the vac. DCP- Discharge Planning Updated by [id number]: Nichelle Up on 05/15/20 4:[address] CM has begun the paperwork on the Wound vac for home use. Explained to the patient that the wound vac must be approved by an outside facility. CM met with patient and spouse, Brian English for DC plans/needs. PCP: Dr. Sim. Pharmacy: [email or web address]. DME: juan pino, shower chair, grab bars. Emergency contact: Brian English (spouse) [phone]. CM discussed HHS, skilled, , rehab. Patient is in agreement with [facility]. Patient choice signed. DC transportation: [facility]. Coverage Notice Reviewer: [id number] Cain Up Notice Issued Date-Time: 05/17/2020 18:02 Notice Type: IM Discharge Notice Notice Delivered To: Patient Relationship to Patient: Self Swamper Name: Indira English Delivery Method: HAND - Hand Delivered Shavon Days: Prior Verbal Notification: Recipient Understood Notice: Yes Recipient Signature: Yes Med Rec Note Co-signed by Attending: Coverage Notice Comment: DC IMM signed/delivered to patient. Original to chart. Last DP export: 05/17/20 4:15 p Patient Name: INDIRA ENGLISH Page 33752 at 1203 All edits/amendments must be made on the electronic document DICTATION DATE: 05/22/20 120 TECHNICAL SERVICES REPRESENTATIVE: ALIE 05/22/20 1202 RPT#: [id number] DC DATE:05/17/20 STATUS: DIS IN [place] [id number] [place] [address] END OF REPORT
--- NOTE | 2020-05-22 12:12 | MORECARE ---
CASE MANAGEMENT DISCHARGE SUMMARY PATIENT: INDIRA ENGLISH UNIT: [id number] ADM DATE: 05/13/20 AGE: 80 : 39 SEX: F ROOM/BED: D.2104 AUTHOR: DIANA,DOC PHYSICIAN: REFERRING PHYSICIAN: QUINTIN YOUSIF MD DATE OF SERVICE: 05/22/20 Discharge Plan Patient Name: INDIRA ENGLISH Facility: [facility]:[place] : 1940 Planned Disposition: Home Health Service Anticipated Discharge Date: 05/16/20 Discharge Date: 05/17/2020 Expected LOS: 3 Initial Reviewer: [id number] Initial Review Date: 05/13/2020 Generated: 05/22/20 1:11 pm Comments DCP- Discharge Planning Updated by [email or web address]: Nichelle Up on 05/17/20 3:[address] CM spoke with [place]) and patient will have first dressing change on Wednesday. [facility] paperwork delivered/signed/faxed for release. Notified Lia in [employer] of same. #[id number]. Patient's cell #[phone]. Wound VAC delivered to patient's room. DCP- Discharge Planning Updated by [email or web address]: Nichelle Up on 05/16/20 1:[address] CM attempted to contact [facility] [phone]), spoke with Mirian who transferred the call too 2 different extensions and no answer obtained. CM contacted Liza with [facility] ([phone]) who states they will accept for M/W/F vac dressing changes. CM faxed required documents to Liza @[phone]. Await release of wound vac. Contacted [facility], with Dr. Felix [phone]) regarding wound vac. Measurements of 11x5x4 provided to [facility]. Await release of the vac. DCP- Discharge Planning Updated by [id number]: Nichelle Up on 05/15/20 4:[address] CM has begun the paperwork on the Wound vac for home use. Explained to the patient that the wound vac must be approved by an outside facility. CM met with patient and spouse, Brian English for DC plans/needs. PCP: Dr. Sim. Pharmacy: [facility]. DME: juan pino, shower chair, grab bars. Emergency contact: Brian English (spouse) [phone]. CM discussed HHS, skilled, , rehab. Patient is in agreement with [facility]. Patient choice signed. DC transportation: Brian. Coverage Notice Reviewer: [id number] Cain Up Notice Issued Date-Time: 05/17/2020 18:02 Notice Type: IM Discharge Notice Notice Delivered To: Patient Relationship to Patient: Self Stores Laborer Name: Indira English Delivery Method: HAND - Hand Delivered Shavon Days: Prior Verbal Notification: Recipient Understood Notice: Yes Recipient Signature: Yes Med Rec Note Co-signed by Attending: Coverage Notice Comment: DC IMM signed/delivered to patient. Original to chart. Last DP export: 05/22/20 11:03 a Patient Name: INDIRA ENGLISH Page 02928 at 1212 All edits/amendments must be made on the electronic document DICTATION DATE: 05/22/20 1211 PRIMARY SCHOOL TEACHER LIBRARIAN: ALIE 05/22/20 1211 RPT#: [id number] DC DATE:05/17/20 STATUS: DIS IN [place] [address] [place] [address] END OF REPORT
--- NOTE | 2020-05-22 12:19 | MORECARE ---
CASE MANAGEMENT DISCHARGE SUMMARY PATIENT: CALVIN ENGLISH UNIT: [id number] ADM DATE: 05/13/20 AGE: 80 : 39 SEX: F ROOM/BED: D.2101 AUTHOR: DIANA,DOC PHYSICIAN: REFERRING PHYSICIAN: QUINTIN YOUSIF MD DATE OF SERVICE: 05/22/20 Discharge Plan Patient Name: CALVIN ENGLISH Facility: [facility]:[place] : 1940 Planned Disposition: Home Health Service Anticipated Discharge Date: 05/16/20 Discharge Date: 05/17/2020 Expected LOS: 3 Initial Reviewer: [id number] Initial Review Date: 05/13/2020 Generated: 05/22/20 1:19 pm Comments DCP- Discharge Planning Updated by [email or web address]: Nichelle Up on 05/22/20 11:[address] Late entry: CM faxed the [facility] Proof of Delivery to [facility]. DCP- Discharge Planning Updated by [id number]: Nichelle Up on 05/17/20 3:[address] CM spoke with Marli [place]) and patient will have first dressing change on Wednesday. [facility] paperwork delivered/signed/faxed for release. Notified [employer] in [employer] of same. #[id number]. Patient's cell #[phone]. Wound VAC delivered to patient's room. DCP- Discharge Planning Updated by [email or web address]: Nichelle Up on 05/16/20 1:[address] CM attempted to contact [facility] [phone]), spoke with Mirian who transferred the call too 2 different extensions and no answer obtained. CM contacted Liza with [facility] ([phone]) who states they will accept for M/W/F vac dressing changes. CM faxed required documents to Liza @[phone]. Await release of wound vac. Contacted [facility], with Dr. Felix [phone]) regarding wound vac. Measurements of 11x5x4 provided to [facility]. Await release of the vac. DCP- Discharge Planning Updated by [email or web address]: Nichelle Up on 05/15/20 4:[address] CM has begun the paperwork on the Wound vac for home use. Explained to the patient that the wound vac must be approved by an outside facility. CM met with patient and spouse, Brian English for DC plans/needs. PCP: Dr. Sim. Pharmacy: [facility]. DME: juan pino, shower chair, grab bars. Emergency contact: Brian English (spouse) [phone]. CM discussed HHS, skilled, , rehab. Patient is in agreement with [facility]. Patient choice signed. DC transportation: [facility]. Coverage Notice Reviewer: [id number] Cain Up Notice Issued Date-Time: 05/17/2020 18:02 Notice Type: IM Discharge Notice Notice Delivered To: Patient Relationship to Patient: Self Authorization Nurse Name: Calvin English Delivery Method: HAND - Hand Delivered Shavon Days: Prior Verbal Notification: Recipient Understood Notice: Yes Recipient Signature: Yes Med Rec Note Co-signed by Attending: Coverage Notice Comment: DC IMM signed/delivered to patient. Original to chart. Last DP export: 05/22/20 11:12 a Patient Name: CALVIN ENGLISH Page 23879 at 1219 All edits/amendments must be made on the electronic document DICTATION DATE: 05/22/20 1219 UTILITIES SERVICE INVESTIGATOR: ALIE 05/22/20 1219 RPT#: [id number] DC DATE:05/17/20 STATUS: DIS IN [facility] [address] [place] [address] END OF REPORT
== END 2020-05-17 15:30 | disposition home health service (06) | DRG 903 ==
LOC: D.M2 09:03 → D.SDCHOLD 09:03 → D.M2 17:09
PROVIDERS: Internal Medicine Cardiovascular Disease; ADMIT Thoracic Surgery (Cardiothoracic Vascular Surgery); ATTEND Thoracic Surgery (Cardiothoracic Vascular Surgery)
PROC: 0JB60ZZ Excision of Chest Subcutaneous Tissue and Fascia, Open Approach (ICD-10-PCS; principal; 2020-05-13 15:30)
DX: T81.30XA Disruption of wound, unspecified, initial encounter (principal); Y83.9 Surgical procedure, unspecified as the cause of abnormal reaction of the patient, or of later complication, without mention of misadventure at the time of the procedure; I10 Essential (primary) hypertension; E78.5 Hyperlipidemia, unspecified; F41.9 Anxiety disorder, unspecified; E11.65 Type 2 diabetes mellitus with hyperglycemia; I25.10 Atherosclerotic heart disease of native coronary artery without angina pectoris

== ENCOUNTER → 2020-07-03 19:35 | Outpatient (CLI) | payer MEDICARE ==
[2020-05-14 12:43] VITALS: BMI 24.7
== END | disposition home or self-care (01) ==
LOC: D.LABREF 19:35
PROVIDERS: ATTEND Thoracic Surgery (Cardiothoracic Vascular Surgery)
DX: B99.8 Other infectious disease (principal)

== ENCOUNTER → 2020-07-09 11:24 | Outpatient (CLI) | payer MEDICARE ==
[2020-05-14 12:43] VITALS: BMI 24.7
== END | disposition home or self-care (01) ==
LOC: D.CT 11:24
PROVIDERS: ATTEND Thoracic Surgery (Cardiothoracic Vascular Surgery)
DX: T81.89XA Other complications of procedures, not elsewhere classified, initial encounter (principal)

== ENCOUNTER → 2020-12-09 22:48 | Outpatient (CLI) | payer MEDICARE ==
[2020-05-14 12:43] VITALS: BMI 24.7
[2020-12-09 23:21] LABS: BASOPHILS 0.6 % (0-2); EOSINOPHILS 6.8 % (0-7); HEMATOCRIT 36.7 % (36.0-48.0); HEMOGLOBIN 11.8 g/dL (12-16); IMMATURE GRANULOCYTES 0.2 % (0-5); LYMPHOCYTE ABS# 2.31 10x3/uL (1.18-3.74); MCH 31.1 pg (26.0-34.0); MCHC 32.2 g/dL (31.0-37.0); MCV 96.8 fL (80.0-100.0); MEAN PLATELET VOLUME 10.4 fL (7.4-10.4); MONOCYTES 6.2 % (2-11); NEUTROPHIL ABS# 2.02 10x3/uL (1.56-6.13); NEUTROPHILS 40.2 % (40-80); RBC 3.79 10x6/uL (4.00-5.40)
[2020-12-09 23:22] LABS: PLATELET COUNT 242 10x3/uL (130-400)
== END | disposition home or self-care (01) ==
LOC: D.LABREF 22:48
PROVIDERS: ATTEND Nurse Practitioner
DX: I25.10 Atherosclerotic heart disease of native coronary artery without angina pectoris (principal); I10 Essential (primary) hypertension